=== PATIENT | male | born 1935 | race Caucasian/White ===

== ENCOUNTER 2016-10-13 11:12 | Emergency (ER) | payer MEDICARE, BC ==
[2016-10-13 11:33] VITALS: BP 144/84
--- NOTE | 2016-10-13 12:29 | EDM.PDOC ---
[id number] 4d FELL OUTSIDE RIBS ARE HURTING Time Seen by Provider: 10/13/16 12:28 Source of Information: Reports: Patient, Family History Limitations: Reports: No Limitations - History of Present Illness INITIAL COMMENTS - FREE TEXT/NARRATIVE: 80-year-old male fell backwards and struck the left flank hard on the edge of a lawnmower. He is not short of breath but has pleuritic pain and pain in the upper left abdomen and left flank. He is on Coumadin. Onset: Sudden Location: Reports: Chest, Abdomen left lower ribcage Pain Score (Numeric/FACES): 9 - Related Data Allergies Allergy/AdvReac Type Severity Reaction Status Date / Time Cephalosporins Allergy Hives Verified 10/13/16 11:34 Iodinated Contrast Media - Allergy Burning Verified 10/13/16 11:34 Oral and [Iodinated Contrast Media - IV Dye] iodine Allergy Burning Verified 10/13/16 11:34 niacin Allergy Cannot Verified 10/13/16 11:34 Remember oxycodone HCl Allergy Cannot Verified 10/13/16 11:34 [From OxyContin] Remember Sulfa (Sulfonamide Allergy Hives Verified 10/13/16 11:34 Antibiotics) vancomycin Allergy Hives Verified 10/13/16 11:34 levofloxacin AdvReac Intermediate Itching Verified 10/13/16 11:34 allobarbital AdvReac Diarrhea Verified 10/13/16 11:34 allopurinol AdvReac Diarrhea Verified 10/13/16 11:34 tetanus and diphtheria AdvReac Vomiting Verified 10/13/16 11:34 toxoids [Tetanus&Diphtheria Toxoid] Home Meds: Home Meds Allopurinol [Zyloprim] 200 mg PO DAILY 05/29/13 [History] Aspirin [Aspirin EC] 81 mg PO DAILY 05/29/13 [History] Carvedilol [Coreg] 12.5 mg PO BID 05/29/13 [History] Colchicine [Colcrys] 0.6 mg PO DAILY 05/29/13 [History] Insulin Aspart [Novolog Flexpen] 8 units SUBCUT TIDAC 05/29/13 [History] Isosorbide Mononitrate [Imdur] 90 mg PO DAILY 05/29/13 [History] Triamcinolone Acetonide [Kenalog 0.1% Crm] 1 applic TOP TID PRN 05/29/13 [ History] Nitroglycerin [Nitrostat] 0.4 mg PO ASDIRECTED 09/05/14 [History] Simvastatin 80 mg PO BEDTIME 09/05/14 [History] Warfarin Sodium 5 mg PO ASDIRECTED 09/05/14 [History] Ferrous Sulfate 325 mg PO BID 06/17/15 [History] Furosemide 80 mg PO BID #60 tablet 06/19/15 [Rx] Insulin Glarg,Human.Rec.Analog [Lantus Solostar] 12 unit SQ BEDTIME 09/15/15 [ History] Losartan [Cozaar] 25 mg PO DAILY 10/13/16 [History] Spironolactone [Aldactone] 25 mg PO DAILY 10/13/16 [History] Past Medical History HEENT History: Reports: Impaired Vision Cardiovascular History: Reports: Afib, Blood Clots/VTE/DVT, CAD, High Cholesterol, Hypertension, [place], PVD, SOB on Exertion, Stents Respiratory History: Reports: Sleep Apnea, Other (See Below) Other Respiratory History: uses cpap and oxygen at night Genitourinary History: Reports: Other (See Below) Other Genitourinary History: radiation to prostate Musculoskeletal History: Reports: Back Pain, Chronic, Fracture, Gout, Osteoarthritis Neurological History: Reports: CVA, Neuropathy, Peripheral Psychiatric History: Reports: Anxiety, Depression Endocrine/Metabolic History: Reports: Diabetes, Type II Oncologic (Cancer) History: Reports: Prostate - Infectious Disease History Infectious Disease History: Reports: Chicken Pox, Measles - Past Surgical History HEENT Surgical History: Reports: Oral Surgery Cardiovascular Surgical History: Reports: Coronary Artery Stent Respiratory Surgical History: Reports: None GI Surgical History: Reports: Appendectomy, Cholecystectomy, Colonoscopy, EGD, Hernia Repair/Other Neurological Surgical History: Reports: Lumbar Spine Musculoskeletal Surgical History: Reports: Hip Replacement, Shoulder Replacement Social & Family History - Tobacco Use Smoking Status *Q: Never Smoker Years of Tobacco use: 30 Used Tobacco, but Quit: Yes Month Tobacco Last Used: 11 Second Hand Smoke Exposure: No - Alcohol Use Days Per Week of Alcohol Use: 0 - Recreational Drug Use Recreational Drug Use: No ED ROS GENERAL - Review of Systems Review Of Systems: See Below Constitutional: Denies: Fever, Chills HEENT: Reports: No Symptoms Respiratory: Reports: Pleuritic Chest Pain Cardiovascular: Reports: Chest Pain GI/Abdominal: Reports: Abdominal Pain (Left upper abdomen) Skin: Denies: Bruising (no significant bruising) Neurological: Denies: Dizziness, Headache Psychiatric: Reports: No Symptoms ED EXAM, GENERAL - Physical Exam Exam: See Below Exam Limited By: No Limitations General Appearance: Alert, No Apparent Distress (No significant distress but uncomfortable with movement) Respiratory/Chest: No Respiratory Distress, Lungs Clear, Other (Very tender to palpation over the left lateral chest, no crepitus) Cardiovascular: Irregularly Irregular GI/Abdominal: Soft, Tender (Does react was some tenderness to palpation in the left upper quadrant) Extremities: Pedal Edema Neurological: Alert, Oriented Psychiatric: Normal Affect, Normal Mood Skin Exam: Other (Some bruising in the extremities, none over the traumatic area ) Course - Vital Signs Last Recorded V/S: Last Vital Signs Temp 96.9 F 10/13/16 11:32 Pulse 68 10/13/16 11:32 Resp 15 10/13/16 11:32 BP 144/84 H 10/13/16 11:32 Pulse Ox 93 L 10/13/16 11:32 - Orders/Labs/Meds Labs: Laboratory Tests 10/13/16 10/13/16 Range/Units 12:28 12:28 WBC 5.2 (4.5-11.0) K/uL RBC 5.02 (4.30-5.90) M/uL Hgb 15.0 (12.0-15.0) g/dL Hct 45.1 (40.0-54.0) % MCV 90 (80-98) fL MCH 30 (27-31) pg MCHC 33 (32-36) % Plt Count 162 (150-400) K/uL Neut % (Auto) 58 (36-66) % Lymph % (Auto) 26 (24-44) % [place] % (Auto) 13 H (2-6) % Eos % (Auto) 3 (2-4) % Baso % (Auto) 0 (0-1) % Sodium 139 L (140-148) mmol/L Potassium 3.9 (3.6-5.2) mmol/L Chloride 106 (100-108) mmol/L Carbon Dioxide 26 (21-32) mmol/L Anion Gap 10.9 (5.0-14.0) mmol/L BUN 23 H (7-18) mg/dL Creatinine 1.2 (0.8-1.3) mg/dL Est Cr Clr Drug Dosing 55.49 mL/min Estimated GFR (MDRD) 58 L (>60) Glucose 142 H (74-106) mg/dL Calcium 8.7 (8.5-10.1) mg/dL - Re-Assessments/Exams Free Text/Narrative Re-Assessment/Exam: 10/13/16 13:34 CBC and BMP were obtained, findings were stable and a CT of the chest and abdomen showed no acute findings. Patient was reassured that he sustained a contusion to the chest wall but otherwise has no significant injury. He should increase activity as tolerated. Departure - Departure Time of Disposition: 13:53 Disposition: Home, Self-Care 01 Condition: good Clinical Impression: Contusion of left chest wall Qualifiers: Encounter type: initial encounter Qualified Code(s): S20.212A - Contusion of left front wall of thorax, initial encounter - Discharge Information Instructions: Chest Contusion, [id number] Referrals: Cesario Ricks MD [Primary Care Provider] - Forms: ED Department Discharge Care Plan Goals: Continue regular medications. Ice to sore areas may help. Increase activity as tolerated, and return anytime if worsening or concerns.
--- NOTE | 2016-10-13 13:33 | CT ---
Chest, abdomen, pelvis CT. History: Fall. Left-sided trauma. Technique: Unenhanced axial images were obtained from the lung apices extending to the chest, abdome n, and pelvis. Coronal images were reconstructed. Total DLP: 1091. Comparison: Chest CT from June 2015. Findings: Chest: There is no pneumothorax. There is chronic increased interstitial markings in the lung bases. The findings likely reflect fibrosis. There is a stable nodular density anteriorly in the right altagracia g base. There are no pleural effusions. The mediastinal structures are stable. The ribs are intact. Abdomen pelvis: The gallbladder is surgically absent. The liver, pancreas, spleen are unremarkable. The kidneys demonstrate no hydronephrosis. There is no free fluid. There is no large or small bowel distention. The skeletal structures are intact. Impression: 1. Chronic bibasilar fibrosis. 2. There are no posttraumatic findings of the chest, abdomen, or pelvis.
== END 2016-10-13 13:53 | disposition home or self-care (01) ==
LOC: JP.ED 11:12
DX: S20.212A Contusion of left front wall of thorax, initial encounter (principal); I25.10 Atherosclerotic heart disease of native coronary artery without angina pectoris; I10 Essential (primary) hypertension; F41.9 Anxiety disorder, unspecified; F32.9 Major depressive disorder, single episode, unspecified; E11.42 Type 2 diabetes mellitus with diabetic polyneuropathy; E78.00 Pure hypercholesterolemia, unspecified; I25.2 Old myocardial infarction; Z79.82 Long term (current) use of aspirin; Z79.899 Other long term (current) drug therapy; Z79.4 Long term (current) use of insulin; Z90.49 Acquired absence of other specified parts of digestive tract; Z98.890 Other specified postprocedural states; Z88.1 Allergy status to other antibiotic agents; Z88.2 Allergy status to sulfonamides; Z88.5 Allergy status to narcotic agent; Z88.8 Allergy status to other drugs, medicaments and biological substances
CPT/HCPCS: 36415; 71250; 71250-26; 74176; 74176-26; 80048; 85025; 99284; 99284-25

== ENCOUNTER 2017-03-02 07:23 | Day surgery (SDC) | payer MEDICARE, BC ==
[~2017-03-02 07:23] MED LIST: Sodium Chloride 0.9% 10 ML Syringe FLUSH PRN
[2017-03-02 09:58] VITALS: BP 142/106
--- NOTE | 2017-03-02 10:20 | OR ---
DATE OF PROCEDURE: 03/02/2017 POSTOPERATIVE CARE: Postoperative care will be provided mainly at the [address] [place] [address] [facility] in conjunction with [facility]. PREOPERATIVE DIAGNOSIS: Cataract, left eye. PREOPERATIVE DIAGNOSIS: Cataract, left eye. PROCEDURE: Cataract extraction, phacoemulsification with intraocular lens placement, left eye. ANESTHESIA: Topical and intracameral. ESTIMATED BLOOD LOSS: Minimal. COMPLICATIONS: None. PATHOLOGY SPECIMENS: None. SURGICAL FINDINGS: None. INDICATION FOR PROCEDURE: The patient is an 81-year-old male with history of a visually significant cataract in the left eye, which interfered with activities of daily living. This consisted of a nuclear sclerosis cataract. Following careful discussion of the risks, benefits and alternatives to cataract extraction with intraocular lens placement including blindness and , the patient elected to proceed, and informed, written consent was obtained prior to the procedure. DESCRIPTION OF THE PROCEDURE: The patient was previously identified, and a jovon placed above the left eye. All sources, including the patient, indicated that the left eye was the correct eye. The patient was subsequently taken to the operating room where standard monitors were applied. The patient was then prepped and draped in the usual sterile fashion for ophthalmic surgery. Attention was first directed at the 12 o'clock position where a paracentesis port was fashioned. Shugar solution followed by Viscoat was instilled into the eye. Attention was then directed to the 8:30 position where a triplanar incision was made in a near-clear manner using a keratome. A continuous capsulorrhexis was then made using a combination of the cystotome and Utrata forceps. Hydrodissection was achieved using a balanced salt solution, and the lens rotated nicely. Phacoemulsification was then done using a modified [id number] technique without complication. Phaco time was 7.76 CDE. The remaining cortex was removed using the irrigation/aspiration handpiece. Provisc was then instilled into the eye. A Technis lens, model [id number], at 21.0 diopters was then placed in the capsular bag using an Hutchison injector. The remaining viscoelastic was removed using the irrigation/aspiration forceps. All wounds were then checked and found to be watertight. The lid speculum and drapes were removed. Maxitrol ointment was placed in the patient's left eye, and the eye was shielded. The patient tolerated the procedure well. The patient was instructed to follow up tomorrow. All needle and sponge counts were correct at the end of the procedure. Staci Wong MD /[id number]
== END 2017-03-02 10:14 | disposition home or self-care (01) ==
LOC: JP.SDS 07:23
PROVIDERS: ATTEND Ophthalmology
DX: H26.9 Unspecified cataract (principal); E11.22 Type 2 diabetes mellitus with diabetic chronic kidney disease; I12.9 Hypertensive chronic kidney disease with stage 1 through stage 4 chronic kidney disease, or unspecified chronic kidney disease; N18.9 Chronic kidney disease, unspecified; I25.10 Atherosclerotic heart disease of native coronary artery without angina pectoris; G47.33 Obstructive sleep apnea (adult) (pediatric); E78.00 Pure hypercholesterolemia, unspecified; E66.9 Obesity, unspecified; F41.9 Anxiety disorder, unspecified; F32.9 Major depressive disorder, single episode, unspecified; Z88.1 Allergy status to other antibiotic agents; Z88.2 Allergy status to sulfonamides; Z88.8 Allergy status to other drugs, medicaments and biological substances; Z91.041 Radiographic dye allergy status; Z87.891 Personal history of nicotine dependence; Z95.5 Presence of coronary angioplasty implant and graft; Z68.30 Body mass index [BMI] 30.0-30.9, adult; Z90.49 Acquired absence of other specified parts of digestive tract
CPT/HCPCS: 66984; C1780; J7050

== ENCOUNTER 2017-04-06 06:11 | Day surgery (SDC) | payer MEDICARE, BC ==
[2017-04-06] MEDS ORDERED: Sodium Chloride 0.9% 10 ML Syringe FLUSH PRN (07:00)
[2017-04-06 08:18] VITALS: BP 144/85
--- NOTE | 2017-04-06 12:50 | OR ---
DATE OF PROCEDURE: 04/06/2017 POSTOPERATIVE CARE: Postoperative care will be provided mainly at the [address] [place] [address] [facility] in conjunction with [facility]. PREOPERATIVE DIAGNOSIS: Cataract, right eye. PREOPERATIVE DIAGNOSIS: Cataract, right eye. PROCEDURE: Cataract extraction, phacoemulsification with intraocular lens placement, right eye. ANESTHESIA: Topical and intracameral. ESTIMATED BLOOD LOSS: Minimal. COMPLICATIONS: None. PATHOLOGY SPECIMENS: None. SURGICAL FINDINGS: None. INDICATION FOR PROCEDURE: The patient is an 81-year-old male with history of a visually significant cataract in the right eye, which interfered with activities of daily living. This consisted of a nuclear sclerosis cataract. Following careful discussion of the risks, benefits and alternatives to cataract extraction with intraocular lens placement including blindness and , the patient elected to proceed, and informed, written consent was obtained prior to the procedure. DESCRIPTION OF THE PROCEDURE: The patient was previously identified, and a jovon placed above the right eye. All sources, including the patient, indicated that the right eye was the correct eye. The patient was subsequently taken to the operating room where standard monitors were applied. The patient was then prepped and draped in the usual sterile fashion for ophthalmic surgery. Attention was first directed at the 12 o'clock position where a paracentesis port was fashioned. Shugar solution followed by Viscoat was instilled into the eye. Attention was then directed to the 8:30 position where a triplanar incision was made in a near-clear manner using a keratome. A continuous capsulorrhexis was then made using a combination of the cystotome and Utrata forceps. Hydrodissection was achieved using a balanced salt solution, and the lens rotated nicely. Phacoemulsification was then done using a modified [id number] technique without complication. Phaco time was 11.29 CDE. The remaining cortex was removed using the irrigation/aspiration handpiece. Provisc was then instilled into the eye. A Technis lens, model [id number], at 21.0 diopters was then placed in the capsular bag using an Leona injector. The remaining viscoelastic was removed using the irrigation/aspiration forceps. All wounds were then checked and found to be watertight. The lid speculum and drapes were removed. Maxitrol ointment was placed in the patient's right eye, and the eye was shielded. The patient tolerated the procedure well. The patient was instructed to follow up tomorrow. All needle and sponge counts were correct at the end of the procedure. Staci Wong MD /[id number]
== END 2017-04-06 08:35 | disposition home or self-care (01) ==
LOC: JP.SDS 06:11
PROVIDERS: ATTEND Ophthalmology
DX: H26.9 Unspecified cataract (principal); G47.33 Obstructive sleep apnea (adult) (pediatric); Z99.89 Dependence on other enabling machines and devices; E11.22 Type 2 diabetes mellitus with diabetic chronic kidney disease; N18.9 Chronic kidney disease, unspecified; Z88.1 Allergy status to other antibiotic agents; Z88.2 Allergy status to sulfonamides; Z88.5 Allergy status to narcotic agent; Z88.7 Allergy status to serum and vaccine; Z88.8 Allergy status to other drugs, medicaments and biological substances; Z91.041 Radiographic dye allergy status
CPT/HCPCS: 66984; J7050; C1780

== ENCOUNTER 2017-05-31 14:13 | Emergency (ER) | payer MEDICARE, BC ==
[2017-05-31 14:47] VITALS: BP 105/73
--- NOTE | 2017-05-31 15:14 | EDM.PDOC ---
ED HPI GENERAL MEDICAL PROBLEM - General Chief Complaint: Upper Extremity Injury/Pain Stated Complaint: FALL, RIGHT SHOULDER, ARM, HAND PAIN Time Seen by Provider: 05/31/17 15:07 Source of Information: Reports: Patient, RN Notes Reviewed History Limitations: Reports: No Limitations - History of Present Illness INITIAL COMMENTS - FREE TEXT/NARRATIVE: 81-year-old gentleman presents to the emergency department today complaint of right arm pain, he states he fell in his house a couple of days ago landed predominantly on his shoulder and wrist area he is experiencing significant pain difficult for him to move his wrist he has developed a lot of swelling over the wrist and fingers as well he is on Coumadin for atrial fibrillation Right Arm Pain Score (Numeric/FACES): 10 - Related Data Allergies Allergy/AdvReac Type Severity Reaction Status Date / Time Cephalosporins Allergy Hives Verified 05/31/17 14:47 Iodinated Contrast- Oral and Allergy Burning Verified 05/31/17 14:47 IV Dye [Iodinated Contrast Media - IV Dye] iodine Allergy Burning Verified 05/31/17 14:47 niacin Allergy Cannot Verified 05/31/17 14:47 Remember oxycodone HCl Allergy Cannot Verified 05/31/17 14:47 [From OxyContin] Remember Sulfa (Sulfonamide Allergy Hives Verified 05/31/17 14:47 Antibiotics) vancomycin Allergy Hives Verified 05/31/17 14:47 levofloxacin AdvReac Intermediate Itching Verified 05/31/17 14:47 allobarbital AdvReac Diarrhea Verified 05/31/17 14:47 allopurinol AdvReac Diarrhea Verified 05/31/17 14:47 tetanus and diphtheria AdvReac Vomiting Verified 05/31/17 14:47 toxoids [Tetanus&Diphtheria Toxoid] Home Meds: Home Meds Allopurinol [Zyloprim] 200 mg PO DAILY 05/29/13 [History] Aspirin [Aspirin EC] 81 mg PO DAILY 05/29/13 [History] Carvedilol [Coreg] 12.5 mg PO BID 05/29/13 [History] Colchicine [Colcrys] 0.6 mg PO DAILY 05/29/13 [History] Isosorbide Mononitrate [Imdur] 90 mg PO DAILY 05/29/13 [History] Nitroglycerin [Nitrostat] 0.4 mg PO ASDIRECTED 09/05/14 [History] Simvastatin 80 mg PO BEDTIME 09/05/14 [History] Ammonium Lactate [Lac-Hydrin 12% Crm] 12 percent TOP BID 02/28/17 [History] Furosemide 80 mg PO DAILY 02/28/17 [History] Losartan [Cozaar] 25 mg PO DAILY 04/05/17 [History] Triamcinolone Acetonide [Triamcinolone Acetonide 0.1% Crm] 15 gm TOP TID PRN [History] Warfarin [Coumadin] 5 mg PO DAILY 04/05/17 [History] Insulin Glargine,Hum.Rec.Anlog [Basaglar Kwikpen U-100] 14 unit SQ BEDTIME 05/31 [History] Past Medical History HEENT History: Reports: Cataract, Impaired Vision Cardiovascular History: Reports: Afib, Blood Clots/VTE/DVT, CAD, High Cholesterol, Hypertension, [place], PVD, SOB on Exertion, Stents Respiratory History: Reports: Sleep Apnea, Other (See Below) Other Respiratory History: uses cpap and oxygen at night Other Genitourinary History: radiation to prostate Musculoskeletal History: Reports: Back Pain, Chronic, Fracture, Gout, Osteoarthritis Neurological History: Reports: CVA, Neuropathy, Peripheral Psychiatric History: Reports: Anxiety, Depression Endocrine/Metabolic History: Reports: Diabetes, Type II, Obesity/BMI 30+ Hematologic History: Reports: Blood Transfusion(s) Oncologic (Cancer) History: Reports: Prostate Dermatologic History: Reports: Other (See Below) Other Dermatologic History: rash - Infectious Disease History Infectious Disease History: Reports: C-Difficile, Measles, Mumps - Past Surgical History HEENT Surgical History: Reports: Cataract Surgery Cardiovascular Surgical History: Reports: Coronary Artery Stent Respiratory Surgical History: Reports: None Male Surgical History: Reports: Prostate Biopsy Endocrine Surgical History: Reports: None Neurological Surgical History: Reports: Lumbar Spine Musculoskeletal Surgical History: Reports: Hip Replacement, Shoulder Replacement Oncologic Surgical History: Reports: None Social & Family History - Tobacco Use Smoking Status *Q: Former Smoker Years of Tobacco use: 10 Packs/Tins Daily: 2 Used Tobacco, but Quit: Yes Month Tobacco Last Used: 1973 Second Hand Smoke Exposure: No - Caffeine Use Caffeine Use: Reports: None - Alcohol Use Days Per Week of Alcohol Use: 0 - Recreational Drug Use Recreational Drug Use: No Review of Systems - Review of Systems Review Of Systems: See Below Respiratory: Reports: No Symptoms Cardiovascular: Reports: No Symptoms GI/Abdominal: Reports: No Symptoms Musculoskeletal: Reports: Shoulder Pain, Arm Pain, Joint Pain (Wrist pain) ED EXAM, GENERAL - Physical Exam Exam: See Below Free Text/Narrative:: Examination of the upper extremity I do appreciate some edema and ecchymosis predominantly in the distal aspect of the right upper extremity limited range of motion of all digits secondary pain and edema minimal range of motion of the wrist and pain with shoulder rotation. Shoulder is tender to palpation the elbow is tender to palpation and the wrist is tender to palpation Exam Limited By: No Limitations General Appearance: Alert, WD/WN, No Apparent Distress Head: Atraumatic, Normocephalic Neck: Normal Inspection, Supple, Non-Tender, Full Range of Motion Respiratory/Chest: No Respiratory Distress, Lungs Clear, Normal Breath Sounds, No Accessory Muscle Use Cardiovascular: Normal Peripheral Pulses, Irregularly Irregular Peripheral Pulses: 2+: Radial (R) Course - Vital Signs Last Recorded V/S: Last Vital Signs Temp 96.3 F 05/31/17 14:32 Pulse 76 05/31/17 14:32 Resp 18 05/31/17 14:32 BP 105/73 05/31/17 14:32 Pulse Ox 97 05/31/17 14:32 - Orders/Labs/Meds Orders: Active Orders 24 hr Category Date Time Status Elbow Min 3V Rt [CR] Stat Exams 05/31/17 15:11 Taken Shoulder Comp Rt [CR] Stat Exams 05/31/17 15:11 Taken Wrist Comp Min 3V Rt [CR] Stat Exams 05/31/17 15:11 Taken Labs: Laboratory Tests 05/31/17 05/31/17 05/31/17 Range/Units 15:12 15:12 15:12 WBC 6.7 (4.5-11.0) K/uL RBC 5.32 (4.30-5.90) M/uL Hgb 15.1 H (12.0-15.0) g/dL Hct 46.2 (40.0-54.0) % MCV 87 (80-98) fL MCH 28 (27-31) pg MCHC 33 (32-36) % Plt Count 180 (150-400) K/uL Neut % (Auto) 69 H (36-66) % Lymph % (Auto) 18 L (24-44) % [place] % (Auto) 12 H (2-6) % Eos % (Auto) 1 L (2-4) % Baso % (Auto) 0 (0-1) % PT 30.4 H (9.5-12.0) sec INR 2.72 H (0.80-1.20) Sodium 141 (140-148) mmol/L Potassium 3.6 (3.6-5.2) mmol/L Chloride 103 (100-108) mmol/L Carbon Dioxide 28 (21-32) mmol/L Anion Gap 10.4 (5.0-14.0) mmol/L BUN 26 H (7-18) mg/dL Creatinine 1.5 H (0.8-1.3) mg/dL Est Cr Clr Drug Dosing 43.65 mL/min Estimated GFR (MDRD) 45 L (>60) Glucose 139 H (74-106) mg/dL Calcium 9.0 (8.5-10.1) mg/dL Meds: Medications Discontinued Medications Generic Name Dose Route Start Last Admin Trade Name Mehreen PRN Reason Stop Dose Admin Ondansetron HCl 4 mg 05/31/17 16:39 05/31/17 17:00 Zofran Odt PO 05/31/17 16:40 4 mg ONETIME ONE Administration Tramadol HCl 50 mg 05/31/17 16:39 05/31/17 17:01 Ultram PO 05/31/17 16:40 50 mg ONETIME ONE Administration Departure - Departure Time of Disposition: 17:17 Disposition: Home, Self-Care 01 Condition: Good Clinical Impression: Contusion, shoulder /upper arm - Discharge Information Referrals: Cesario Ricks MD [Primary Care Provider] - Forms: ED Department Discharge Additional Instructions: Use ibuprofen for baseline pain control use Ultram as needed for breakthrough pain, Please followup with your primary care provider in 7-10 days if not better, please call return to the emergency department with worsening of symptoms. - My Orders Last 24 Hours: My Active Orders 05/31/17 15:11 Elbow Min 3V Rt [CR] Stat Shoulder Comp Rt [CR] Stat Wrist Comp Min 3V Rt [CR] Stat - Assessment/Plan Last 24 Hours: My Active Orders 05/31/17 15:11 Elbow Min 3V Rt [CR] Stat Shoulder Comp Rt [CR] Stat Wrist Comp Min 3V Rt [CR] Stat Plan: Assessment Acuity = acute Site and laterality = contusion right shoulder wrist and elbow Etiology = secondary to fall Manifestations = none Location of injury = Home Lab values = no fracture is observed and x-rays Plan He had some improvement with Ultram provided, prescription written for Ultram 50 mg 1 tablet by mouth 3 times a day when necessary him follow-up with his primary care 5-7 days if no improvement This note was dictated using Whi voice recognition software please call with any questions on syntax or rachel.
[2017-05-31] MEDS ORDERED: traMADol 50 MG Tab PO ONE (16:39)
[2017-05-31] MEDS ORDERED: Ondansetron 4 MG Tab.DIS PO ONE (16:39)
== END 2017-05-31 17:45 | disposition home or self-care (01) ==
LOC: JP.ED 14:13
DX: S40.011A Contusion of right shoulder, initial encounter (principal); S60.211A Contusion of right wrist, initial encounter; S50.01XA Contusion of right elbow, initial encounter; E11.40 Type 2 diabetes mellitus with diabetic neuropathy, unspecified; I10 Essential (primary) hypertension; E78.00 Pure hypercholesterolemia, unspecified; I48.91 Unspecified atrial fibrillation; Z79.82 Long term (current) use of aspirin; Z79.4 Long term (current) use of insulin; Z88.1 Allergy status to other antibiotic agents; Z88.2 Allergy status to sulfonamides; Z88.8 Allergy status to other drugs, medicaments and biological substances; Z88.7 Allergy status to serum and vaccine; Z87.891 Personal history of nicotine dependence; W19.XXXA Unspecified fall, initial encounter; Y92.009 Unspecified place in unspecified non-institutional (private) residence as the place of occurrence of the external cause
CPT/HCPCS: 36415; 73030; 73080; 73110; 80048; 85025; 85610; 99284; A9270

== ENCOUNTER 2017-12-20 09:10 | Emergency (ER) | payer MEDICARE, BC ==
[2017-12-20] MEDS ORDERED: Cyclobenzaprine 10 MG Tab PO ONE (09:41)
[2017-12-20] MEDS ORDERED: fentaNYL 100 MCG/2 ML SDV IVPUSH ONE (09:41)
[2017-12-20 10:20] VITALS: BP 188/109
--- NOTE | 2017-12-20 10:26 | EDM.PDOC ---
ED HPI GENERAL MEDICAL PROBLEM - General Chief Complaint: Back Pain or Injury Stated Complaint: MEDICAL VIA AMBULANCE Time Seen by Provider: 12/20/17 09:35 Source of Information: Reports: Patient, Family, Old Records, RN Notes Reviewed History Limitations: Reports: No Limitations - History of Present Illness INITIAL COMMENTS - FREE TEXT/NARRATIVE: 82-year-old gentleman presents to the emergency department today via EMS services for low back pain, he denies any trauma recently underwent surgery about 20 days ago for removal of the subcutaneous cyst, he states he has been doing well however the last couple days she's had increased in low back pain, no loss of bowel or bladder no fevers recently restarted on Coumadin which was held for her surgery - Related Data Allergies Allergy/AdvReac Type Severity Reaction Status Date / Time Cephalosporins Allergy Hives Verified 12/20/17 09:22 Iodinated Contrast- Oral and Allergy Burning Verified 12/20/17 09:22 IV Dye [Iodinated Contrast Media - IV Dye] iodine Allergy Burning Verified 12/20/17 09:22 niacin Allergy Cannot Verified 12/20/17 09:22 Remember oxycodone HCl Allergy Cannot Verified 12/20/17 09:22 [From OxyContin] Remember Sulfa (Sulfonamide Allergy Hives Verified 12/20/17 09:22 Antibiotics) vancomycin Allergy Hives Verified 12/20/17 09:22 levofloxacin AdvReac Intermediate Itching Verified 12/20/17 09:22 allobarbital AdvReac Diarrhea Verified 12/20/17 09:22 allopurinol AdvReac Diarrhea Verified 12/20/17 09:22 tetanus and diphtheria AdvReac Vomiting Verified 11/29/17 09:05 toxoids [Tetanus&Diphtheria Toxoid] Home Meds: Home Meds Aspirin [Aspirin EC] 81 mg PO DAILY 05/29/13 [History] Carvedilol [Coreg] 12.5 mg PO BID 05/29/13 [History] Colchicine [Colcrys] 0.6 mg PO DAILY 05/29/13 [History] Nitroglycerin [Nitrostat] 0.4 mg PO ASDIRECTED 09/05/14 [History] Simvastatin 80 mg PO BEDTIME 09/05/14 [History] Furosemide 80 mg PO DAILY 02/28/17 [History] Triamcinolone Acetonide [Triamcinolone Acetonide 0.1% Crm] 15 gm TOP TID PRN [History] Insulin Glargine,Hum.Rec.Anlog [Basaglar Kwikpen U-100] 14 unit SQ BEDTIME 05/31 [History] Ketorolac [Toradol] 10 mg PO Q6H PRN #20 tab 12/20/17 [Rx] Past Medical History HEENT History: Reports: Cataract, Impaired Vision Cardiovascular History: Reports: Afib, Blood Clots/VTE/DVT, CAD, High Cholesterol, Hypertension, [place], PVD, SOB on Exertion, Stents Respiratory History: Reports: Sleep Apnea, Other (See Below) Other Respiratory History: uses cpap and oxygen at night Gastrointestinal History: Reports: Cholelithiasis, GI Bleed Genitourinary History: Reports: BPH Other Genitourinary History: radiation to prostate Musculoskeletal History: Reports: Back Pain, Chronic, Fracture, Gout, Osteoarthritis Neurological History: Reports: CVA, Neuropathy, Peripheral Psychiatric History: Reports: Anxiety, Depression Endocrine/Metabolic History: Reports: Diabetes, Type II, Obesity/BMI 30+ Hematologic History: Reports: Anemia, Blood Transfusion(s) Oncologic (Cancer) History: Reports: Prostate Dermatologic History: Reports: Other (See Below) Other Dermatologic History: rash - Infectious Disease History Infectious Disease History: Reports: Chicken Pox, Measles, Mumps - Past Surgical History HEENT Surgical History: Reports: Cataract Surgery Cardiovascular Surgical History: Reports: Coronary Artery Stent Respiratory Surgical History: Reports: None GI Surgical History: Reports: Appendectomy, Cholecystectomy, Colonoscopy, EGD, Hernia, Inguinal Male Surgical History: Reports: Prostate Biopsy Endocrine Surgical History: Reports: None Neurological Surgical History: Reports: Lumbar Spine Musculoskeletal Surgical History: Reports: Carpal Tunnel, Hip Replacement, Shoulder Replacement Oncologic Surgical History: Reports: None Social & Family History - Tobacco Use Smoking Status *Q: Former Smoker Years of Tobacco use: 22 Packs/Tins Daily: 1 Used Tobacco, but Quit: Yes Month/Year Tobacco Last Used: Second Hand Smoke Exposure: Yes - Caffeine Use Caffeine Use: Reports: None - Recreational Drug Use Recreational Drug Use: No ED ROS GENERAL - Review of Systems Review Of Systems: See Below Constitutional: Denies: Fever, Chills HEENT: Reports: No Symptoms Respiratory: Reports: No Symptoms Cardiovascular: Reports: No Symptoms GI/Abdominal: Reports: No Symptoms : Reports: No Symptoms Musculoskeletal: Reports: Back Pain, Joint Pain (Left hip) Skin: Reports: Bruising Neurological: Reports: No Symptoms ED EXAM,LOWER BACK PAIN/INJURY - Physical Exam Exam: See Below Text/Narrative:: Examination of the back limited range of motion secondary to pain however there is no tenderness to palpation along the spine he is tender to palpation in the left buttocks area, surgical wound in this area clean dry and intact small amount of induration is noted around the surgical site. He is tender to palpation around the left hip pelvic area and there is a large amount of bruising which is noted over the left thigh Exam Limited By: No Limitations General Appearance: Alert, Moderate Distress Respiratory/Chest: No Respiratory Distress, Lungs Clear, Normal Breath Sounds, No Accessory Muscle Use, Chest Non-Tender Cardiovascular: Regular Rate, Rhythm, No Murmur GI/Abdominal: Normal Bowel Sounds, Soft, Non-Tender Course - Vital Signs Last Recorded V/S: Last Vital Signs Temp 95.5 F 12/20/17 10:20 Pulse 92 12/20/17 10:20 Resp 14 12/20/17 10:20 BP 188/109 H 12/20/17 10:20 Pulse Ox 98 12/20/17 10:20 - Orders/Labs/Meds Labs: Laboratory Tests 12/20/17 12/20/17 12/20/17 Range/Units 10:30 10:30 10:30 WBC 3.9 L (4.5-11.0) K/uL RBC 4.99 (4.30-5.90) M/uL Hgb 14.1 (12.0-15.0) g/dL Hct 43.5 (40.0-54.0) % MCV 87 (80-98) fL MCH 28 (27-31) pg MCHC 32 (32-36) % Plt Count 176 (150-400) K/uL Neut % (Auto) 57 (36-66) % Lymph % (Auto) 28 (24-44) % [place] % (Auto) 11 H (2-6) % Eos % (Auto) 4 (2-4) % Baso % (Auto) 0 (0-1) % PT 12.1 H (9.5-12.0) sec INR 1.11 D (0.80-1.20) Sodium 142 (140-148) mmol/L Potassium 4.0 (3.6-5.2) mmol/L Chloride 105 (100-108) mmol/L Carbon Dioxide 29 (21-32) mmol/L Anion Gap 8.5 (5.0-14.0) mmol/L BUN 26 H (7-18) mg/dL Creatinine 1.3 (0.8-1.3) mg/dL Est Cr Clr Drug Dosing 49.51 mL/min Estimated GFR (MDRD) 53 L (>60) Glucose 114 H (74-106) mg/dL Calcium 8.9 (8.5-10.1) mg/dL Meds: Medications Discontinued Medications Generic Name Dose Route Start Last Admin Trade Name Freq PRN Reason Stop Dose Admin Cyclobenzaprine HCl 10 mg 12/20/17 09:41 12/20/17 09:50 Flexeril PO 12/20/17 09:42 10 mg ONETIME ONE Administration Fentanyl 50 mcg 12/20/17 09:41 12/20/17 09:50 Sublimaze IVPUSH 12/20/17 09:42 50 mcg ONETIME ONE Administration Departure - Departure Time of Disposition: 11:25 Disposition: Home, Self-Care 01 Condition: Fair Clinical Impression: Left hip pain - Discharge Information Prescriptions: Ketorolac [Toradol] 10 mg PO Q6H PRN #20 tab PRN Reason: Pain Referrals: Cesario Ricks MD [Primary Care Provider] - Forms: ED Department Discharge Additional Instructions: Use Toradol as needed for pain control, Please followup with your primary care provider in 3-5 days if not better, please call return to the emergency department with worsening of symptoms. - Assessment/Plan Plan: Assessment Acuity = acute Site and laterality = left hip pain Etiology = unclear etiology Manifestations = none Location of injury = Home Lab values = CBC, BMP unremarkable INR subtherapeutic at 1.11, x-rays of pelvis and hip show no acute process Plan He had good relief combination fentanyl and Flexeril, he does have a significant allergy to narcotics with mainly intolerance, prescription written for ketorolac 10 mg by mouth every 6 hours when necessary total #20 tablets from follow-up with primary care in 3-5 days for reevaluation This note was dictated using [employer] voice recognition software please call with any questions on syntax or grammar.
--- NOTE | 2017-12-20 11:10 | CR ---
Pelvis left hip There is left hip prosthesis. The components are well aligned and seated. There is advanced osteoarth ritis of the right hip. There are no acute post traumatic findings. Vascular calcifications are demon strated. Impression: 1. Left hip arthroplasty without evidence for complication. 2. Advanced osteoarthritis right hip.
== END 2017-12-20 11:57 | disposition home or self-care (01) ==
LOC: JP.ED 09:10
DX: S70.12XA Contusion of left thigh, initial encounter (principal); M25.552 Pain in left hip; Z87.891 Personal history of nicotine dependence; Z79.82 Long term (current) use of aspirin; Z88.1 Allergy status to other antibiotic agents; Z88.7 Allergy status to serum and vaccine; Z79.4 Long term (current) use of insulin; Z79.899 Other long term (current) drug therapy; I10 Essential (primary) hypertension; E11.9 Type 2 diabetes mellitus without complications; E66.9 Obesity, unspecified; Z88.2 Allergy status to sulfonamides; Z91.041 Radiographic dye allergy status; X58.XXXA Exposure to other specified factors, initial encounter
CPT/HCPCS: 36415; 73502; 80048; 85025; 85610; 96374; 99284; A9270; J3010

== ENCOUNTER 2018-08-28 20:09 | Emergency (ER) | payer MEDICARE, BC ==
[2018-08-28 21:07] VITALS: BP 135/78
--- NOTE | 2018-08-28 21:22 | EDM.PDOC ---
ED HPI GENERAL MEDICAL PROBLEM - General Chief Complaint: Upper Extremity Injury/Pain Stated Complaint: LEFT SHOULDER PAIN Time Seen by Provider: 08/28/18 21:17 Source of Information: Reports: Patient, RN Notes Reviewed History Limitations: Reports: No Limitations - History of Present Illness INITIAL COMMENTS - FREE TEXT/NARRATIVE: 82-year-old gentleman presents to the emergency department today following a twisting injury at home, he complains of left shoulder pain he injured his shoulder while trying to open a door his arm was fully supinated he was pulling on the door felt a pop now he has difficulty raising his arm at all rates pain 10 out of 10 - Related Data Allergies Allergy/AdvReac Type Severity Reaction Status Date / Time Cephalosporins Allergy Hives Verified 08/28/18 21:05 Iodinated Contrast- Oral and Allergy Burning Verified 08/28/18 21:05 IV Dye [Iodinated Contrast Media - IV Dye] iodine Allergy Burning Verified 08/28/18 21:05 niacin Allergy Cannot Verified 08/28/18 21:05 Remember oxycodone HCl Allergy Cannot Verified 08/28/18 21:05 [From OxyContin] Remember Sulfa (Sulfonamide Allergy Hives Verified 08/28/18 21:05 Antibiotics) vancomycin Allergy Hives Verified 08/28/18 21:05 levofloxacin AdvReac Intermediate Itching Verified 08/28/18 21:05 allobarbital AdvReac Diarrhea Verified 08/28/18 21:05 allopurinol AdvReac Diarrhea Verified 08/28/18 21:05 tetanus and diphtheria AdvReac Vomiting Verified 08/28/18 21:05 toxoids [Tetanus&Diphtheria Toxoid] Home Meds: Home Meds Aspirin [Aspirin EC] 81 mg PO DAILY 05/29/13 [History] Carvedilol [Coreg] 12.5 mg PO BID 05/29/13 [History] Colchicine [Colcrys] 0.6 mg PO DAILY 05/29/13 [History] Nitroglycerin [Nitrostat] 0.4 mg PO ASDIRECTED 09/05/14 [History] Simvastatin 80 mg PO BEDTIME 09/05/14 [History] Furosemide 40 mg PO Q48H 02/28/17 [History] Triamcinolone Acetonide [Triamcinolone Acetonide 0.1% Crm] 15 gm TOP TID PRN [History] Insulin Glargine,Hum.Rec.Anlog [Geraldoaglrenan Esparzapen U-100] 14 unit SQ BEDTIME 05/31 [History] Ketorolac [Toradol] 10 mg PO Q6H PRN #20 tab 12/20/17 [Rx] Warfarin Dosing [Coumadin Ask] 2.5 - 5 mg PO ONETIME 08/28/18 [History] Past Medical History HEENT History: Reports: Cataract, Impaired Vision Cardiovascular History: Reports: Afib, Blood Clots/VTE/DVT, CAD, High Cholesterol, Hypertension, [place], PVD, SOB on Exertion, Stents Respiratory History: Reports: Sleep Apnea, Other (See Below) Other Respiratory History: uses cpap and oxygen at night Gastrointestinal History: Reports: Cholelithiasis, GI Bleed Genitourinary History: Reports: BPH, Prostate Disorder Other Genitourinary History: radiation to prostate Musculoskeletal History: Reports: Back Pain, Chronic, Fracture, Gout, Osteoarthritis Neurological History: Reports: CVA, Neuropathy, Peripheral Psychiatric History: Reports: Anxiety, Depression Endocrine/Metabolic History: Reports: Diabetes, Type II, Obesity/BMI 30+ Hematologic History: Reports: Anemia, Blood Transfusion(s) Oncologic (Cancer) History: Reports: Prostate Dermatologic History: Reports: Other (See Below) Other Dermatologic History: rash - Infectious Disease History Infectious Disease History: Reports: Chicken Pox, Measles, Mumps - Past Surgical History HEENT Surgical History: Reports: Cataract Surgery Cardiovascular Surgical History: Reports: Coronary Artery Stent Respiratory Surgical History: Reports: None GI Surgical History: Reports: Appendectomy, Cholecystectomy, Colonoscopy, EGD, Hernia, Inguinal Male Surgical History: Reports: Prostate Biopsy Endocrine Surgical History: Reports: None Neurological Surgical History: Reports: Lumbar Spine Musculoskeletal Surgical History: Reports: Carpal Tunnel, Hip Replacement, Shoulder Replacement Oncologic Surgical History: Reports: None Social & Family History - Tobacco Use Smoking Status *Q: Never Smoker - Caffeine Use Caffeine Use: Reports: Coffee Caffeine Use Comment: decaf coffee - Recreational Drug Use Recreational Drug Use: No Review of Systems - Review of Systems Review Of Systems: See Below Musculoskeletal: Reports: Shoulder Pain Skin: Reports: No Symptoms Neurological: Reports: No Symptoms ED EXAM, GENERAL - Physical Exam Exam: See Below Free Text/Narrative:: Examination left shoulder I don't appreciate any erythema there is no edema noted I don't appreciate any step-offs he has about 10 abduction without pain radial pulse is +2 does not tolerate any amount of passive movement Exam Limited By: No Limitations General Appearance: Alert, WD/WN, No Apparent Distress Course - Vital Signs Last Recorded V/S: Last Vital Signs Temp 95.4 F 08/28/18 21:11 Pulse 58 L 08/28/18 21:11 Resp 16 08/28/18 21:11 BP 135/78 08/28/18 21:11 Pulse Ox 97 08/28/18 21:11 Departure - Departure Time of Disposition: 22:09 Disposition: Home, Self-Care 01 Condition: Fair Clinical Impression: Left shoulder strain Qualifiers: Encounter type: initial encounter Qualified Code(s): S46.912A - Strain of unspecified muscle, fascia and tendon at shoulder and upper arm level, left arm , initial encounter - Discharge Information Referrals: Cesario Ricks MD [Primary Care Provider] - Forms: ED Department Discharge Additional Instructions: Please followup with your primary care provider in 3-5 days if not better, please call return to the emergency department with worsening of symptoms. - Assessment/Plan Plan: Assessment Acuity = acute Site and laterality = left shoulder strain Etiology = secondary to twisting injury Manifestations = difficulty with abduction Location of injury = Home Lab values = x-ray shows no acute fracture Plan His any use Tylenol as needed for pain control he will follow-up with his primary care this week for further evaluation always concern for rotator cuff injury further imaging may be required This note was dictated using [employer] voice recognition software please call with any questions on syntax or grammar.
--- NOTE | 2018-08-28 22:02 | CRLCR ---
HISTORY: Left shoulder injury. TECHNIQUE: Three views of the left shoulder. COMPARISON: No prior. FINDINGS: There is no acute fracture or dislocation. Mild glenohumeral and moderate AC joint degenerative arthrosis changes. Chronic cystic or erosive change involving greater tuberosity. IMPRESSION: 1. No acute fracture or dislocation. 2. Degenerative changes. Dictated by Alexey Bhatti MD @ 08/28/2018 10:00:32 PM Dictated by: Alexey Bhatti MD @ 08/28/2018 22:00:34 (Electronically Signed)
== END 2018-08-28 22:29 | disposition home or self-care (01) ==
LOC: JP.ED 20:09
DX: S46.912A Strain of unspecified muscle, fascia and tendon at shoulder and upper arm level, left arm, initial encounter (principal); I48.91 Unspecified atrial fibrillation; I10 Essential (primary) hypertension; I25.2 Old myocardial infarction; I25.10 Atherosclerotic heart disease of native coronary artery without angina pectoris; Z95.5 Presence of coronary angioplasty implant and graft; E11.9 Type 2 diabetes mellitus without complications; F41.9 Anxiety disorder, unspecified; F32.9 Major depressive disorder, single episode, unspecified; Z88.1 Allergy status to other antibiotic agents; Z88.7 Allergy status to serum and vaccine; Z88.8 Allergy status to other drugs, medicaments and biological substances; Z88.2 Allergy status to sulfonamides; X50.1XXA Overexertion from prolonged static or awkward postures, initial encounter; Z79.82 Long term (current) use of aspirin; Z79.4 Long term (current) use of insulin
CPT/HCPCS: 73030-LT; 99282; 99283-25

== ENCOUNTER 2019-05-03 10:51 | Day surgery (SDC) | payer MEDICARE, BC ==
[~2019-05-03 10:51] MED LIST changes: +Midazolam 1 MG/ML 2 ML SDV ONE; +Propofol 200 MG/20 ML SDV ONE; -Sodium Chloride 0.9% 10 ML Syringe FLUSH PRN; +fentaNYL 100 MCG/2 ML SDV ONE
[2019-05-03] MEDS ORDERED: Carvedilol 12.5 MG Tab PO ONE (11:14)
[2019-05-03] MEDS ORDERED: Dextrose 5%-Lactated Ringers 1,000 ML IV SCH (11:30)
[2019-05-03 15:16] VITALS: BP 149/84; PULSE 78
--- NOTE | 2019-05-12 12:21 | OR ---
DATE OF PROCEDURE: 05/03/2019 SURGEON: Sumeet Larsen MD PREOPERATIVE DIAGNOSIS: Anemia. POSTOPERATIVE DIAGNOSIS: Anemia associated with: 1. Mild antral gastritis. 2. Single small polyp of transverse colon (4 mm). 3. No upper GI endoscopic or colonoscopic suggestive of potential bleeding sites. OPERATIVE PROCEDURE: 1. Esophagogastroduodenoscopy with antral biopsies for CLOtest. 2. Colonoscopy with polypectomy by snare technique. ANESTHESIA: Some IV sedation. INDICATIONS FOR PROCEDURE: This is an 83-year-old presenting with some ongoing anemia. The most recent hemoglobin was obtained on 04/25/2019 which was 8.7. This showed microcytic hypochromic features and the patient will undergo an upper and lower endoscopy for diagnostic evaluation, looking for any potential GI bleeding sites. Potential risks of the procedure including bleeding and perforation were discussed, and the patient wishes to proceed. DETAILS OF PROCEDURE: The patient was taken to the operating room, placed in a left lateral decubitus position. IV sedation was administered after which the upper GI endoscope was passed orally through the length of the esophagus and into the stomach with retroflexion view of the fundus, thereafter through the pyloric channel into the junction of the 3rd and 4th portions of the duodenum. Findings included normal hypopharynx, larynx, upper esophageal sphincter, and esophageal body. At the EG junction, minimal hiatal hernia was present with no significant inflammation. No stricturing or plaquing was seen within the stomach. There was some patchy redness in the antrum, otherwise the gastric exam was unremarkable. The pyloric channel and duodenum to the junction of the 3rd and 4th portions were unremarkable. The ampulla of Vater was identified and there was no evidence of neoplasia at that site. At this point, biopsies obtained from the antrum and sent for CLOtest for H. pylori. Minimal bleeding from the biopsy site was seen and the procedure then concluded. Attention was then taken to the colonoscopy. The initial digital rectal exam was performed, it was unremarkable. The colonoscope was then passed into the rectum with retroflexion revealing uncomplicated hemorrhoidal columns. The scope was eventually passed to the level of the cecum. The prep was fairly good with only a small amount of liquid stool present. To that level, the only abnormality was a roughly 4-mm polyp located in the transverse colon. Otherwise, there was no diverticula, areas of colitis, and no additional signs of polyps or other neoplastic changes. The polyp was then encircled at its base and removed by means of the cautery snare technique and sent for histologic evaluation. Good hemostasis was noted at the polypectomy site. The scope was then withdrawn and the procedure then concluded. In the view, there were no findings suggestive of an upper or lower GI bleeding site on today's examination, the pathologic findings would not likely be resulting in any significant bleeding. We did repeat some labs today and hemoglobin was 9.3. We checked ferritin, B12, and folate. Ferritin was 22, B12 of 445, and folate of 16.7, all within normal range. While the ferritin was on the lower end of normal, this would still not likely be limiting in terms of formation of hemoglobin. The patient will be following up with Nuria Marmolejo DO at [facility] in roughly 1 week for followup of the anemia. Sumeet Larsen MD /[id number]
== END 2019-05-03 15:56 | disposition home or self-care (01) ==
LOC: JP.SDS 10:51
PROVIDERS: ATTEND Surgery
DX: D64.9 Anemia, unspecified (principal); K44.9 Diaphragmatic hernia without obstruction or gangrene; K29.70 Gastritis, unspecified, without bleeding; K64.9 Unspecified hemorrhoids; K63.5 Polyp of colon; I10 Essential (primary) hypertension; I25.10 Atherosclerotic heart disease of native coronary artery without angina pectoris; I48.91 Unspecified atrial fibrillation; G47.33 Obstructive sleep apnea (adult) (pediatric); Z86.73 Personal history of transient ischemic attack (TIA), and cerebral infarction without residual deficits
CPT/HCPCS: 36415; 43239; 45385; 82607; 82728; 82746; 85025; 85610; 87081; 88305; A9270; J2250; J2704; J3010; J7121

== ENCOUNTER 2020-10-30 14:05 | Emergency (ER) | payer MEDICARE, BC ==
[2020-10-30 14:34] VITALS: BP 112/52; PULSE 61
--- NOTE | 2020-10-30 14:34 | EDM.PDOC ---
ED HPI GENERAL MEDICAL PROBLEM - General Chief Complaint: Respiratory Problem Stated Complaint: DIFF. BREATHING Time Seen by Provider: 10/30/20 14:48 Source of Information: Reports: Patient History Limitations: Reports: No Limitations - History of Present Illness INITIAL COMMENTS - FREE TEXT/NARRATIVE: This is an 85 year old male presenting with difficulty breathing. Patient rep orts 2-3 days of feeling like it is difficult to take a breath. He states that when he tries to take a breath, he feels a "tightness" and "pulling" in his throat that feels like its trying to close up. He reports that it feels like the muscles around his neck/throat are tightening when he tries to take a breath. When he exhales, the feeling resolves. He reports a chronic cough that is productive of yellow sputum. this is unchanged recently. no fever or chills. of note, he does admit to coughing whenever he tries to drink water. He states this is chronic and has been going on for a long time. he denies difficult swallowing. He denies voice changes or hoarseness. He denies any chest pain. He reports some swelling in his lower extremities, but this is normal for him occasionally. - Related Data Allergies Allergy/AdvReac Type Severity Reaction Status Date / Time Cephalosporins Allergy Hives Verified 10/30/20 14:42 gabapentin Allergy Other Verified 10/30/20 14:42 Iodinated Contrast Media Allergy Burning Verified 10/30/20 14:42 [Iodinated Contrast Media - IV Dye] iodine Allergy Burning Verified 10/30/20 14:42 niacin Allergy Cannot Verified 10/30/20 14:42 Remember oxycodone HCl Allergy Nausea and Verified 10/30/20 14:42 [From OxyContin] Vomiting Sulfa (Sulfonamide Allergy Hives Verified 10/30/20 14:42 Antibiotics) vancomycin Allergy Hives Verified 10/30/20 14:42 levofloxacin AdvReac Intermediate Itching Verified 10/30/20 14:42 allobarbital AdvReac Diarrhea Verified 10/30/20 14:42 allopurinol AdvReac Diarrhea Verified 10/30/20 14:42 tetanus and diphtheria AdvReac Vomiting Verified 10/30/20 14:42 toxoids [Tetanus&Diphtheria Toxoid] DIAGNOTIC MATERIAL Allergy Other Uncoded 10/30/20 14:42 Home Meds: Home Meds Carvedilol [Coreg] 12.5 mg PO BID 05/29/13 [History] Colchicine [Colcrys] 0.6 mg PO DAILY 05/29/13 [History] Nitroglycerin [Nitrostat] 0.4 mg PO ASDIRECTED PRN 09/05/14 [History] Furosemide 80 mg PO DAILY 02/28/17 [History] Insulin Glargine,Hum.Rec.Anlog [Basaglar Kwikpen U-100] 10 unit SQ BEDTIME 05/31/17 [History] Warfarin Dosing [Coumadin Ask] 2.5 - 5 mg PO ASDIRECTED 08/28/18 [History] Aspirin [Adult Low Dose Aspirin EC] 81 mg PO DAILY 04/26/19 [History] Ammonium Lactate [Lac-Hydrin 12% Crm] 1 applic TOP BID 07/16/19 [History] metOLazone [Metolazone] 2.5 mg PO .2XAWEEK 07/16/19 [History] Acetaminophen [Tylenol Extra Strength] 500 mg PO Q6H PRN 08/10/20 [History] Omeprazole 20 mg PO DAILY 08/10/20 [History] Potassium Chloride 20 meq PO BID 08/10/20 [History] Past Medical History HEENT History: Reports: Cataract, Impaired Vision Cardiovascular History: Reports: Afib, Blood Clots/VTE/DVT, CAD, High Cholesterol, Hypertension, [place], PVD, SOB on Exertion, Stents Respiratory History: Reports: Sleep Apnea, Other (See Below) Other Respiratory History: uses cpap and oxygen at night Gastrointestinal History: Reports: Cholelithiasis, GI Bleed Genitourinary History: Reports: BPH, Prostate Disorder Other Genitourinary History: radiation to prostate Musculoskeletal History: Reports: Back Pain, Chronic, Fracture, Gout, Osteoarthritis Other Musculoskeletal History: left shoulder pain Neurological History: Reports: CVA, Neuropathy, Peripheral Psychiatric History: Reports: Anxiety, Depression Endocrine/Metabolic History: Reports: Diabetes, Type II, Obesity/BMI 30+ Hematologic History: Reports: Anemia, Blood Transfusion(s) Immunologic History: Reports: None Oncologic (Cancer) History: Reports: Prostate Dermatologic History: Reports: Other (See Below) Other Dermatologic History: rash - Infectious Disease History Infectious Disease History: Reports: Chicken Pox, Measles, Mumps - Past Surgical History HEENT Surgical History: Reports: Cataract Surgery Cardiovascular Surgical History: Reports: Coronary Artery Stent GI Surgical History: Reports: Appendectomy, Cholecystectomy, Colonoscopy, EGD, Hernia, Inguinal Male Surgical History: Reports: Prostate Biopsy Neurological Surgical History: Reports: Lumbar Spine Musculoskeletal Surgical History: Reports: Carpal Tunnel, Hip Replacement, Shoulder Replacement Other Musculoskeletal Surgeries/Procedures:: back surgery Social & Family History - Family History Family Medical History: No Pertinent Family History - Tobacco Use Tobacco Use Status *Q: Never Tobacco User - Caffeine Use Caffeine Use: Reports: Coffee Caffeine Use Comment: decaf coffee ED ROS GENERAL - Review of Systems Review Of Systems: Comprehensive ROS is negative, except as noted in HPI. ED EXAM, GENERAL - Physical Exam Exam: See Below Exam Limited By: No Limitations General Appearance: Alert, WD/WN, No Apparent Distress Throat/Mouth: Normal Oropharynx, Normal Voice, No Airway Compromise Head: Atraumatic, Normocephalic. No: Facial Swelling Neck: Normal Inspection, Supple, Non-Tender, Full Range of Motion, Other (no swelling) Respiratory/Chest: No Respiratory Distress, Lungs Clear, Normal Breath Sounds, No Accessory Muscle Use, Chest Non-Tender. No: Respiratory Distress, Crackles, Rales, Rhonchi, Wheezing, Stridor Cardiovascular: Normal Peripheral Pulses, Irregularly Irregular, Other (Bilateral lower extremity edema present) Extremities: Normal Capillary Refill Neurological: Alert, Oriented, CN II-XII Intact Skin Exam: Warm, Dry, Normal Color #1 Interpretation EKG Date: 10/30/20 Time: 15:10 Rhythm: A-Fib P-Wave: Absent EKG Interpretation Comments: A fib Course - Vital Signs Last Recorded V/S: Last Vital Signs Temp 97.7 F 10/30/20 14:44 Pulse 61 10/30/20 14:44 Resp 18 10/30/20 14:44 BP 112/52 L 10/30/20 14:44 Pulse Ox 96 10/30/20 14:44 - Orders/Labs/Meds Orders: Active Orders 24 hr Category Date Time Status Chest 2V [CR] Stat Exams 10/30/20 14:59 Taken Neck Soft Tissue [CR] Stat Exams 10/30/20 14:59 Taken EKG 12 Lead [EK] Routine Ther 10/30/20 14:35 Ordered Labs: Laboratory Tests 06/25/21 06/25/21 06/25/21 Range/Units 15:12 15:14 15:14 WBC 3.6 L (4.5-11.0) K/uL RBC 3.67 L (4.30-5.90) M/uL Hgb 8.6 L (12.0-15.0) g/dL Hct 28.4 L (40.0-54.0) % MCV 77 L (80-98) fL MCH 23 L (27-31) pg MCHC 30 L (32-36) % Plt Count 153 (150-400) K/uL Neut % (Auto) 59.0 (36-66) % Lymph % (Auto) 27.5 (24-44) % [place] % (Auto) 11.0 H (2-6) % Eos % (Auto) 2.2 (2-4) % Baso % (Auto) 0.3 (0-1) % PT 26.7 H (9.5-12.0) sec INR 2.49 H (0.80-1.20) Sodium 141 (140-148) mmol/L Potassium 4.4 (3.6-5.2) mmol/L Chloride 107 (100-108) mmol/L Carbon Dioxide 28 (21-32) mmol/L Anion Gap 6.3 (5.0-14.0) mmol/L BUN 23 H (7-18) mg/dL Creatinine 1.2 (0.8-1.3) mg/dL Est Cr Clr Drug Dosing 50.86 mL/min Estimated GFR (MDRD) 58 L (>60) Glucose 137 H (74-106) mg/dL Calcium 8.6 (8.5-10.1) mg/dL Troponin I < 0.017 (0.000-0.056) ng/mL NT-Pro-B Natriuret Pep 3937 H (5-450) pg/mL Departure - Departure Time of Disposition: 16:15 Disposition: Home, Self-Care 01 Clinical Impression: Dyspnea - Discharge Information Instructions: Shortness of Breath, Adult, [place] Referrals: Mary Lou PA-C [Primary Care Provider] - Forms: ED Department Discharge Additional Instructions: The cause of your symptoms is not entirely clear at this time. You should follow up with your doctor on monday or monday for further evaluation. Return to the ED if you develop worsening shortness of breath, fever, noisy breathing, or other concerning symptoms. Sepsis Event Note (ED) - Focused Exam Vital Signs: Vital Signs Temp Pulse Resp BP Pulse Ox 10/30/20 14:44 97.7 F 61 18 112/52 L 96 10/30/20 14:31 97.7 F 61 18 112/52 L 96 - Problem List Review Problem List Initiated/Reviewed/Updated: Yes - My Orders Last 24 Hours: My Active Orders 10/30/20 14:35 EKG 12 Lead [EK] Routine 10/30/20 14:59 Chest 2V [CR] Stat Neck Soft Tissue [CR] Stat - Assessment/Plan Last 24 Hours: My Active Orders 10/30/20 14:35 EKG 12 Lead [EK] Routine 10/30/20 14:59 Chest 2V [CR] Stat Neck Soft Tissue [CR] Stat Plan: This is an 85 year old male presenting with difficulty breathing, stating it feels like his throat/upper airway is trying to close when he takes a breath in and then it improves when he exhales. Differential diagnosis considered includes foreign body, tracheal stenosis, subglottic stenosis, epiglottitis, mass, esophageal stricture, achalasia, ACS, among others. He is afebrile and well appearing in the ED with normal oxygen saturations. There is no hoarseness or ot her voice changes. There is no stridor or other evidence of upper or lower airway obstruction at this time. EKG showed atrial fibrillation, which appears to be chronic. He is anticoagulated with warfarin and his INR is therapeutic. Troponin is negative and there is no evidence of cardiac ischemia at this time. I doubt this is referred cardiac symptoms. CXR appears unchanged from previous chest imaging - no obvious lobar pneumonia or pulmonary edema. His BNP is elevated, but it sounds like he has not taken his diuretics recently so I encouraged him to take those as prescribed. His presentation today is not consistent with CHF exacerbation. His oxygen saturations have remained >95% on room air and there has been no respiratory distress or stridor while in the ED. The cause of his symptoms is not entirely clear, could still be a mass or stricture causing his symptoms. However, there is no indication for emergent evaluation for those things today. He likely requires further evaluation with laryngoscopy and/or EGD, though I see no signs that this needs to be done emergently today. He is appropriate for discharge home with close follow up with primary care for further evaluation of his symptoms.
--- NOTE | 2020-11-02 09:28 | CR ---
CHEST: 2 view CLINICAL HISTORY:SOB COMPARISON:CT chest 07/26/2019 FINDINGS: There is patchy density in the left lower lobe which is unchanged since prior CT. There is some minimal streaky density in the right lateral lung base which has increased since prior study. There is some ill-definition of the posterior right hemidiaphragm. Lower lobe infiltrate is not excluded. Patient does have underlying fibrosis. Heart and pulmonary vascularity are normal. IMPRESSION: Underlying pulmonary fibrosis Density in the right lower lobe may have increased since prior study. A right lower lobe pneumonia is not excluded Chest 2V, Neck Soft Tissue CLINICAL HISTORY: Tightness upper airway FINDINGS: Prevertebral soft tissues are unremarkable. Epiglottis is not well defined. This may be positional. The area epiglottic folds appear well demarcated. Subglottic airway has a normal contour. Impression: Ill-definition of the epiglottis is most likely positional but clinical correlation is necessary. Aryepiglottic folds are visualized
== END 2020-10-30 17:06 | disposition home or self-care (01) ==
LOC: JP.ED 14:05
DX: R06.00 Dyspnea, unspecified (principal); R60.0 Localized edema; E11.9 Type 2 diabetes mellitus without complications; E66.9 Obesity, unspecified; I25.10 Atherosclerotic heart disease of native coronary artery without angina pectoris; E78.00 Pure hypercholesterolemia, unspecified; I10 Essential (primary) hypertension; I48.91 Unspecified atrial fibrillation; Z79.01 Long term (current) use of anticoagulants; Z79.82 Long term (current) use of aspirin; Z79.899 Other long term (current) drug therapy; Z91.041 Radiographic dye allergy status; Z88.2 Allergy status to sulfonamides; Z88.5 Allergy status to narcotic agent; Z88.7 Allergy status to serum and vaccine; Z79.4 Long term (current) use of insulin
CPT/HCPCS: 36415; 70360; 70360-26; 71046; 71046-26; 80048; 83880; 84484; 85025; 85610; 93005; 93010; 99284; 99285-25

== ENCOUNTER 2021-03-01 10:17 | Day surgery (SDC) | payer MEDICARE, BC ==
[2021-03-01] MEDS ORDERED: Propofol 200 MG/20 ML SDV ONE (10:32)
[2021-03-01] MEDS ORDERED: Sodium Chloride 0.9% 1,000 ML IV SCH (11:00)
[2021-03-01 13:16] VITALS: BP 144/79; PULSE 82
--- NOTE | 2021-03-01 19:11 | OR ---
DATE OF PROCEDURE: 03/01/2021 SURGEON: Ilan De La Fuente MD PROCEDURE: Esophagogastroduodenoscopy. FINDINGS: Normal EGD. PREOPERATIVE DIAGNOSIS: Concern for gastrointestinal bleed. POSTOPERATIVE DIAGNOSIS: Concern for gastrointestinal bleed. RISKS: Risks, benefits, alternatives, and limitations including, but not limited to infection, bleeding, perforation, false positives, and false negatives were explained to the patient and they wished to proceed. PROCEDURE IN DETAIL: The patient was placed in left lateral decubitus position. The EGD scope was introduced and advanced atraumatically to the second part of the duodenum. No evidence of duodenitis or ulceration were noted. No old or new blood. No ulceration. Within the stomach itself, there was no evidence of gastritis. No old or new blood. The GE junction was normal. The esophagus was normal. The air was removed from the stomach without difficulty. The patient tolerated procedure well. Ilan De La Fuente MD /[id number]
== END 2021-03-01 13:18 | disposition home or self-care (01) ==
LOC: JP.SDS 10:17
PROVIDERS: ATTEND Surgery
DX: K92.2 Gastrointestinal hemorrhage, unspecified (principal); I25.10 Atherosclerotic heart disease of native coronary artery without angina pectoris; I50.9 Heart failure, unspecified; I48.91 Unspecified atrial fibrillation; E11.22 Type 2 diabetes mellitus with diabetic chronic kidney disease; N18.9 Chronic kidney disease, unspecified; I13.0 Hypertensive heart and chronic kidney disease with heart failure and stage 1 through stage 4 chronic kidney disease, or unspecified chronic kidney disease; Z86.73 Personal history of transient ischemic attack (TIA), and cerebral infarction without residual deficits
CPT/HCPCS: 43235; J2704; J7030

== ENCOUNTER 2021-04-26 11:49 | Inpatient (IN) | payer MEDICARE, BC ==
--- NOTE | 2021-04-26 13:29 | EDM.PDOC ---
ED HPI GENERAL MEDICAL PROBLEM - General Chief Complaint: Lower Extremity Injury/Pain Stated Complaint: LT LEG SWELLING AND SORE Time Seen by Provider: 04/26/21 13:23 Source of Information: Reports: Patient History Limitations: Reports: No Limitations - History of Present Illness INITIAL COMMENTS - FREE TEXT/NARRATIVE: pt arrived with increased pain in his leg. It is swollen and tight. Onset: Gradual Duration: Day(s): Associated Symptoms: Reports: Other (increased pain. ) Left Lower Leg Pain Score (Numeric/FACES): 10 - Related Data Allergies Allergy/AdvReac Type Severity Reaction Status Date / Time Cephalosporins Allergy Hives Verified 03/24/21 08:24 enoxaparin [From Lovenox] Allergy Dizziness Verified 03/24/21 08:24 gabapentin Allergy Other Verified 03/24/21 08:24 Iodinated Contrast Media Allergy Burning Verified 03/24/21 08:24 [Iodinated Contrast Media - IV Dye] iodine Allergy Burning Verified 03/24/21 08:24 niacin Allergy Cannot Verified 03/24/21 08:24 Remember Sulfa (Sulfonamide Allergy Hives Verified 03/24/21 08:24 Antibiotics) vancomycin Allergy Hives Verified 03/24/21 08:24 levofloxacin AdvReac Intermediate Itching Verified 03/24/21 08:24 allobarbital AdvReac Diarrhea Verified 03/24/21 08:24 allopurinol AdvReac Diarrhea Verified 03/24/21 08:24 oxycodone HCl AdvReac Nausea and Verified 04/28/21 14:38 [From OxyContin] Vomiting tetanus and diphtheria AdvReac Vomiting Verified 03/24/21 08:24 toxoids [Tetanus&Diphtheria Toxoid] Home Meds: Home Meds Carvedilol [Coreg] 12.5 mg PO BID 05/29/13 [History] Colchicine [Colcrys] 0.6 mg PO DAILY 05/29/13 [History] Nitroglycerin [Nitrostat] 0.4 mg PO ASDIRECTED PRN 09/05/14 [History] Insulin Glargine,Hum.Rec.Anlog [Basaglar Kwikpen U-100] 5 unit SQ BEDTIME 05/31/17 [History] Warfarin Dosing [Coumadin Ask] 2.5 - 5 mg PO ASDIRECTED 08/28/18 [History] Aspirin [Adult Low Dose Aspirin EC] 81 mg PO DAILY 04/26/19 [History] Ammonium Lactate [Lac-Hydrin 12% Crm] 1 applic TOP BID 07/16/19 [History] Acetaminophen [Tylenol Extra Strength] 500 mg PO Q6H PRN 08/10/20 [History] Omeprazole 20 mg PO DAILY 08/10/20 [History] Potassium Chloride 40 meq PO QAM 08/10/20 [History] Bumetanide [Bumex] 1 mg PO DAILY 02/23/21 [History] Cholecalciferol (Vitamin D3) [Vitamin D3] 2,000 unit PO DAILY 02/23/21 [History] Ergocalciferol (Vitamin D2) [Vitamin D2] 1.25 mg PO .1XWEEK 02/23/21 [History] Iron,Carbonyl/Ascorbic Acid [Vitron-C Tablet] 1 tab PO BID 02/23/21 [History] Pantoprazole Sodium [Protonix] 40 mg PO BID 03/24/21 [History] Potassium Chloride [K-Tab ER] 20 meq PO QPM 03/24/21 [History] Amoxicillin/Potassium Clav [Augmentin 875-125 Tablet] 1 each PO BID #8 tablet 04/29/21 [Rx] Past Medical History HEENT History: Reports: Cataract, Impaired Vision Other HEENT History: wears glasses Cardiovascular History: Reports: Afib, Blood Clots/VTE/DVT, CAD, High Choles terol, Hypertension, ID, PVD, SOB on Exertion, Stents Respiratory History: Reports: Sleep Apnea, Other (See Below) Other Respiratory History: uses cpap and oxygen at night Gastrointestinal History: Reports: Cholelithiasis, GI Bleed Genitourinary History: Reports: BPH, Prostate Disorder Other Genitourinary History: radiation to prostate Musculoskeletal History: Reports: Back Pain, Chronic, Fracture, Gout, Osteoarthritis Other Musculoskeletal History: left shoulder pain Neurological History: Reports: CVA, Neuropathy, Peripheral Psychiatric History: Reports: Anxiety, Depression Endocrine/Metabolic History: Reports: Diabetes, Type II, Obesity/BMI 30+ Hematologic History: Reports: Anemia, Anticoagulation Therapy, Blood T ransfusion(s) Immunologic History: Reports: None Oncologic (Cancer) History: Reports: Prostate Dermatologic History: Reports: Other (See Below) Other Dermatologic History: rash - Infectious Disease History Infectious Disease History: Reports: Chicken Pox, Measles, Mumps - Past Surgical History Head Surgeries/Procedures: Reports: None HEENT Surgical History: Reports: Cataract Surgery Cardiovascular Surgical History: Reports: Coronary Artery Stent Respiratory Surgical History: Reports: None GI Surgical History: Reports: Appendectomy, Cholecystectomy, Colonoscopy, EGD, Hernia, Inguinal Male Surgical History: Reports: Prostate Biopsy Endocrine Surgical History: Reports: None Neurological Surgical History: Reports: Lumbar Spine Musculoskeletal Surgical History: Reports: Carpal Tunnel, Hip Replacement, Shoulder Replacement, Other (See Below) Other Musculoskeletal Surgeries/Procedures:: back surgery Oncologic Surgical History: Reports: None Dermatological Surgical History: Reports: None Social & Family History - Family History Family Medical History: No Pertinent Family History - Tobacco Use Tobacco Use Status *Q: Never Tobacco User - Caffeine Use Caffeine Use: Reports: Coffee Caffeine Use Comment: decaf coffee - Recreational Drug Use Recreational Drug Use: No Review of Systems - Review of Systems Review Of Systems: See Below Constitutional: Reports: No Symptoms Eyes: Reports: No Symptoms Ears: Reports: No Symptoms Nose: Reports: No Symptoms Mouth/Throat: Reports: No Symptoms Respiratory: Reports: No Symptoms Cardiovascular: Reports: No Symptoms GI/Abdominal: Reports: No Symptoms Genitourinary: Reports: No Symptoms Musculoskeletal: Reports: Other ( increased pain and swelling in the left lower leg. ) Skin: Reports: Other ( redness present. ) ED EXAM, GENERAL - Physical Exam Exam: See Below Free Text/Narrative:: pt arrived with increased pain in the lower left leg. There is increased swelling and redness. Exam Limited By: No Limitations General Appearance: Alert, Anxious Ears: Normal TMs Nose: Normal Inspection Throat/Mouth: Normal Inspection Head: Atraumatic Respiratory/Chest: No Respiratory Distress Cardiovascular: Regular Rate, Rhythm GI/Abdominal: Soft, Non-Tender (Male) Exam: Deferred Rectal (Males) Exam: Deferred Back Exam: Normal Inspection Neurological: Alert, Oriented, Normal Cognition Psychiatric: Anxious Skin Exam: Other (pt has increased redness and swelling in the left lower leg. It is very tender to palpate. His foot is warm. pulses are not bounding. ) Lymphatic: Other Course - Vital Signs Last Recorded V/S: Last Vital Signs Temp 36.1 C 04/29/21 11:00 Pulse 76 04/29/21 11:00 Resp 16 04/29/21 11:00 BP 110/63 04/29/21 11:00 Pulse Ox 93 L 04/29/21 11:00 - Orders/Labs/Meds Labs: Laboratory Tests 04/26/21 04/26/21 04/26/21 Range/Units 12:00 13:34 13:34 WBC (4.5-11.0) K/uL RBC (4.30-5.90) M/uL Hgb (12.0-15.0) g/dL Hct (40.0-54.0) % MCV (80-98) fL MCH (27-31) pg MCHC (32-36) % Plt Count (150-400) K/uL Neut % (Auto) (36-66) % Lymph % (Auto) (24-44) % Mcminn % (Auto) (2-6) % Eos % (Auto) (2-4) % Baso % (Auto) (0-1) % Sodium 137 L (140-148) mmol/L Potassium 4.5 (3.6-5.2) mmol/L Chloride 102 (100-108) mmol/L Carbon Dioxide 28 (21-32) mmol/L Anion Gap 11.5 (5.0-14.0) mmol/L BUN 20 H (7-18) mg/dL Creatinine 1.3 (0.8-1.3) mg/dL Est Cr Clr Drug Dosing 46.95 mL/min Estimated GFR (MDRD) 52 L (>60) Glucose 101 (74-106) mg/dL Calcium 9.0 (8.5-10.1) mg/dL Total Bilirubin 0.6 (0.2-1.0) mg/dL AST 26 (15-37) U/L ALT 33 (12-78) U/L Alkaline Phosphatase 156 H D (46-116) U/L C-Reactive Protein 1.08 H (0.0-0.3) mg/dL Total Protein 7.6 (6.4-8.2) g/dL Albumin 2.7 L (3.4-5.0) g/dL Globulin 4.9 H (2.3-3.5) g/dL Albumin/Globulin Ratio 0.6 L (1.2-2.2) Urine Color (YELLOW) Urine Appearance (CLEAR) Urine pH (5.0-8.0) Ur Specific [place] (1.008-1.030) Urine Protein (NEGATIVE) mg/dL Urine Glucose (UA) (NEGATIVE) mg/dL Urine Ketones (NEGATIVE) mg/dL Urine Occult Blood (NEGATIVE) Urine Nitrite (NEGATIVE) Urine Bilirubin (NEGATIVE) Urine Urobilinogen (0.2-1.0) EU/dL Ur Leukocyte Esterase (NEGATIVE) Urine RBC (0-5) Urine WBC (0-5) Ur Epithelial Cells Amorphous Sediment Urine Bacteria Urine Mucus Influenza Type A RNA Negative (NEGATIVE) RSV RNA (INAAT) Negative (NEGATIVE) Influenza Type B RNA Negative (NEGATIVE) SARS-CoV-2 RNA (IZABEL) Negative (NEGATIVE) 04/26/21 04/26/21 Range/Units 13:34 15:41 WBC 7.7 (4.5-11.0) K/uL RBC 4.25 L (4.30-5.90) M/uL Hgb 11.3 L D (12.0-15.0) g/dL Hct 36.6 L (40.0-54.0) % MCV 86 (80-98) fL MCH 27 (27-31) pg MCHC 31 L (32-36) % Plt Count 219 (150-400) K/uL Neut % (Auto) 72.7 H (36-66) % Lymph % (Auto) 16.6 L (24-44) % Mcminn % (Auto) 9.2 H (2-6) % Eos % (Auto) 1.2 L (2-4) % Baso % (Auto) 0.3 (0-1) % Sodium (140-148) mmol/L Potassium (3.6-5.2) mmol/L Chloride (100-108) mmol/L Carbon Dioxide (21-32) mmol/L Anion Gap (5.0-14.0) mmol/L BUN (7-18) mg/dL Creatinine (0.8-1.3) mg/dL Est Cr Clr Drug Dosing mL/min Estimated GFR (MDRD) (>60) Glucose (74-106) mg/dL Calcium (8.5-10.1) mg/dL Total Bilirubin (0.2-1.0) mg/dL AST (15-37) U/L ALT (12-78) U/L Alkaline Phosphatase (46-116) U/L C-Reactive Protein (0.0-0.3) mg/dL Total Protein (6.4-8.2) g/dL Albumin (3.4-5.0) g/dL Globulin (2.3-3.5) g/dL Albumin/Globulin Ratio (1.2-2.2) Urine Color Yellow (YELLOW) Urine Appearance Slightly cloudy A (CLEAR) Urine pH 5.5 (5.0-8.0) Ur Specific [place] 1.015 (1.008-1.030) Urine Protein Negative (NEGATIVE) mg/dL Urine Glucose (UA) Negative (NEGATIVE) mg/dL Urine Ketones Negative (NEGATIVE) mg/dL Urine Occult Blood Trace-intact H (NEGATIVE) Urine Nitrite Positive H (NEGATIVE) Urine Bilirubin Negative (NEGATIVE) Urine Urobilinogen 0.2 (0.2-1.0) EU/dL Ur Leukocyte Esterase Small H (NEGATIVE) Urine RBC 5-10 H (0-5) Urine WBC 75-100 H (0-5) Ur Epithelial Cells Few Amorphous Sediment Not seen Urine Bacteria Many Urine Mucus Few Influenza Type A RNA (NEGATIVE) RSV RNA (INAAT) (NEGATIVE) Influenza Type B RNA (NEGATIVE) SARS-CoV-2 RNA (IZABEL) (NEGATIVE) Meds: Medications Discontinued Medications Generic Name Dose Route Start Last Admin Trade Name Freq PRN Reason Stop Dose Admin Acetaminophen 650 mg 04/26/21 20:01 Acetaminophen 325 Mg Tab PO Q4H PRN Pain (Mild 1-3)/fever Ammonium Lactate 0 gm 04/28/21 09:00 04/29/21 08:23 Ammonium Lactate 12% Lotion 225 Gm Bottle TOP 1 applic BID JIM Administration Aspirin 81 mg 04/27/21 09:00 04/29/21 08:23 Aspirin 81 Mg Tab.Ec PO 81 mg DAILY JIM Administration Bumetanide 2 mg 04/27/21 07:00 04/28/21 08:08 Bumetanide 2.5 Mg/10 Ml Mdv IVPUSH 2 mg Q12H JIM Administration Bumetanide 2 mg 04/29/21 08:00 04/29/21 08:20 Bumetanide 2.5 Mg/10 Ml Mdv IVPUSH 2 mg Q24H JIM Administration Carvedilol 12.5 mg 04/26/21 21:00 04/29/21 08:23 Carvedilol 12.5 Mg Tab PO 12.5 mg BID JIM Administration Colchicine 0.6 mg 04/27/21 09:00 04/29/21 08:23 Colchicine 0.6 Mg Tab PO 0.6 mg DAILY JIM Administration Dextrose 15 gm 04/26/21 20:01 Glucose Gel 15 Gm In 37.5 Gm Tube PO ONETIME PRN Hypoglycemia Dextrose/Water 50 ml 04/26/21 20:01 50% Dextrose In Water 50 Ml Syringe IV ONETIME PRN Hypoglycemia Piperacillin/Tazobactam/ 50 mls @ 100 mls/hr 04/26/21 15:45 04/26/21 16:11 Dextrose 3.375 gm/ Premix IV 04/26/21 16:14 100 mls/hr ONETIME ONE Administration Piperacillin Sod/Tazobactam 50 mls @ 100 mls/hr 04/26/21 22:00 04/27/21 03:44 Sod 3.375 gm/ Sodium Chloride IV 100 mls/hr Q6H JIM Administration Piperacillin/Tazobactam/ 50 mls @ 100 mls/hr 04/27/21 10:00 04/29/21 10:17 Dextrose 3.375 gm/ Premix IV 100 mls/hr Q6H JIM Administration Influenza Virus Vaccine 240 mcg 04/27/21 10:00 04/27/21 10:43 Flu Vacc [id number](65yr Up)/Pf 240 Mcg/0.7 Ml Syringe IM 04/27/21 10:01 240 mcg .ONCE ONE Administration Insulin Glargine 5 units 04/26/21 21:00 04/28/21 21:12 Insulin Glargine,Human Rec. Analog 100 Units/Ml 3 Ml Pen SUBCUT 5 unit BEDTIME JIM Administration Insulin Human Lispro 0 unit 04/26/21 20:01 04/29/21 13:23 Insulin Lispro 100 Unit/Ml 3 Ml Kwikpen SUBCUT Not Given [facility] Protocol Ondansetron HCl 4 mg 04/26/21 20:01 Ondansetron 4 Mg/2 Ml Sdv IV Q4H PRN Nausea/Vomiting Pantoprazole Sodium 40 mg 04/27/21 07:30 04/29/21 08:20 Pantoprazole 40 Mg Tab.Cr PO 40 mg ACBREAKFAST JIM Administration Polyethylene Glycol 17 gm 04/26/21 20:01 Polyethylene Glycol 3350 Powder 17 Gm Packet PO DAILY PRN Constipation Potassium Chloride 40 meq 04/27/21 09:00 04/29/21 08:21 Potassium Chloride 20 Meq Tab.Er PO 40 meq QAM JIM Administration Potassium Chloride 20 meq 04/27/21 17:00 04/28/21 16:18 Potassium Chloride 20 Meq Tab.Er PO 20 meq QPM JIM Administration Sodium Chloride 10 ml 04/26/21 20:01 Sodium Chloride 0.9% 10 Ml Syringe FLUSH ASDIRECTED PRN Keep Vein Open Warfarin Sodium 2.5 mg 04/27/21 13:00 04/29/21 13:23 Warfarin 2.5 Mg Tab PO 2.5 mg DAILY@1300 JIM Administration - Re-Assessments/Exams Free Text/Narrative Re-Assessment/Exam: 04/26/21 16:28 cat scan of the leg did not show involvement of the tib-fib. There is no localized abcess formation. There is tissue swelling and evidence of infection. Dr De La Fuente was consulted and he felt he needesd 2 days of iv antibiotics, He was given 3.75 of zosyn iv. Departure - Departure Time of Disposition: 08:00 Disposition: Admitted As Inpatient 66 Condition: Fair Clinical Impression: Cellulitis of left leg - Discharge Information Sepsis Event Note (ED) - Evaluation Sepsis Screening Result: No Definite Risk
--- NOTE | 2021-04-26 14:58 | CT ---
Lower Extremity wo Cont Lt CLINICAL HISTORY: Swelling pain and redness, diabetes TECHNIQUE: Multislice scanning was performed to the left tib-fib without IV contrast. Prescribed dose COMPARISON: None FINDINGS: There is motion on multiple image series. There is diffuse subcutaneous edema. This is most notable in the lower third of the calf. No abnormal fluid collections are identified. No bony destruction or periosteal reaction is identified in the tibia or fibula. There are diffuse arterial calcifications related to diabetes. No osseous lesions are seen in the tib-fib. There is severe degenerative changes and subchondral cyst formation in the visualized portions of the talus and calcaneus. There is a focus of bony resorption and loss of cortex in the midportion of the talus going into the subtalar joint. IMPRESSION: Moderate diffuse edema more notable in the lower third of the calf No focal abscess identified There is no evidence of osteomyelitis in the tib-fib. There is some localized bony loss and cortical loss in the inferior mid talus extending into the talocalcaneal joint. This may be degenerative change alone. The active destructive process is not excluded
[2021-04-26] MEDS ORDERED: Piperacillin/Tazobactam 3.375 GM in Sodium Chloride 0.9% 50 ML IV SCH ×2 (15:30→18:30)
[2021-04-26] MEDS ORDERED: Piperacillin/Tazobactam/Dext 3.375 GM in Premix Bag 1 BAG IV ONE (15:45)
[2021-04-26 19:16] LABS: CORONAVIRUS COVID-19 NAA NEGATIVE (NEGATIVE)
--- NOTE | 2021-04-26 19:48 | PCM.HP.2 ---
H&P History of Present Illness - General Date of Service: 04/26/21 Admit Problem/Dx: Admission Diagnosis/Problem Admission Diagnosis/Problem UTI, Urinary tract infectious disease Source of Information: Patient, Provider, RN Notes Reviewed History Limitations: Reports: No Limitations - History of Present Illness Initial Comments - Free Text/Narative: Mr. Mahoney is an 85-year-old gentleman who was admitted through the emergency department with increased swelling and erythema of his left leg as well as a urinary tract infection. Over the past few days has experienced increased swelling of the leg with increased erythema and tenderness. Because of the increase in pain he was seen and evaluated in the clinic today, then referred to the emergency department for further evaluation. He is on long-term oral anticoagulation with warfarin. CT scan of the leg was obtained in the emergency department and shows no evidence of osteomyelitis or abscess formation. He was also found to have evidence of urinary tract infection and has received 1 dose of Zosyn. Urine culture is pending. Left Lower Leg Pain Score (Numeric/FACES): 10 - Related Data Allergies/Adverse Reactions: Allergies Allergy/AdvReac Type Severity Reaction Status Date / Time Cephalosporins Allergy Hives Verified 03/24/21 08:24 enoxaparin [From Lovenox] Allergy Dizziness Verified 03/24/21 08:24 gabapentin Allergy Other Verified 03/24/21 08:24 Iodinated Contrast Media Allergy Burning Verified 03/24/21 08:24 [Iodinated Contrast Media - IV Dye] iodine Allergy Burning Verified 03/24/21 08:24 niacin Allergy Cannot Verified 03/24/21 08:24 Remember oxycodone HCl Allergy Nausea and Verified 03/24/21 08:24 [From OxyContin] Vomiting Sulfa (Sulfonamide Allergy Hives Verified 03/24/21 08:24 Antibiotics) vancomycin Allergy Hives Verified 03/24/21 08:24 levofloxacin AdvReac Intermediate Itching Verified 03/24/21 08:24 allobarbital AdvReac Diarrhea Verified 03/24/21 08:24 allopurinol AdvReac Diarrhea Verified 03/24/21 08:24 tetanus and diphtheria AdvReac Vomiting Verified 03/24/21 08:24 toxoids [Tetanus&Diphtheria Toxoid] DIAGNOTIC MATERIAL Allergy Other Uncoded 03/24/21 08:24 Home Medications: Home Meds Carvedilol [Coreg] 12.5 mg PO BID 01/22/14 [History] Colchicine [Colcrys] 0.6 mg PO DAILY 05/29/13 [History] Nitroglycerin [Nitrostat] 0.4 mg PO ASDIRECTED PRN 09/05/14 [History] Insulin Glargine,Hum.Rec.Anlog [Basaglar Kwikpen U-100] 5 unit SQ BEDTIME 05/31/17 [History] Warfarin Dosing [Coumadin Ask] 2.5 - 5 mg PO ASDIRECTED 08/28/18 [History] Aspirin [Adult Low Dose Aspirin EC] 81 mg PO DAILY 04/26/19 [History] Ammonium Lactate [Lac-Hydrin 12% Crm] 1 applic TOP BID 07/16/19 [History] Acetaminophen [Tylenol Extra Strength] 500 mg PO Q6H PRN 08/10/20 [History] Omeprazole 20 mg PO DAILY 08/10/20 [History] Potassium Chloride 40 meq PO QAM 08/10/20 [History] Bumetanide [Bumex] 1 mg PO DAILY 02/23/21 [History] Cholecalciferol (Vitamin D3) [Vitamin D3] 2,000 unit PO DAILY 02/23/21 [History] Ergocalciferol (Vitamin D2) [Vitamin D2] 1.25 mg PO .1XWEEK 02/23/21 [History] Iron,Carbonyl/Ascorbic Acid [Vitron-C Tablet] 1 tab PO BID 02/23/21 [History] Pantoprazole Sodium [Protonix] 40 mg PO BID 03/24/21 [History] Potassium Chloride [K-Tab ER] 20 meq PO QPM 03/24/21 [History] Past Medical History HEENT History: Reports: Cataract, Impaired Vision Other HEENT History: wears glasses Cardiovascular History: Reports: Afib, Blood Clots/VTE/DVT, CAD, High Cholesterol, Hypertension, CT, PVD, SOB on Exertion, Stents Respiratory History: Reports: Sleep Apnea, Other (See Below) Other Respiratory History: uses cpap and oxygen at night Gastrointestinal History: Reports: Cholelithiasis, GI Bleed Genitourinary History: Reports: BPH, Prostate Disorder Other Genitourinary History: radiation to prostate Musculoskeletal History: Reports: Back Pain, Chronic, Fracture, Gout, Osteoarthritis Other Musculoskeletal History: left shoulder pain Neurological History: Reports: CVA, Neuropathy, Peripheral Psychiatric History: Reports: Anxiety, Depression Endocrine/Metabolic History: Reports: Diabetes, Type II, Obesity/BMI 30+ Hematologic History: Reports: Anemia, Anticoagulation Therapy, Blood Transfusion(s) Immunologic History: Reports: None Oncologic (Cancer) History: Reports: Prostate Dermatologic History: Reports: Other (See Below) Other Dermatologic History: rash - Infectious Disease History Infectious Disease History: Reports: Chicken Pox, Measles, Mumps - Past Surgical History Head Surgeries/Procedures: Reports: None HEENT Surgical History: Reports: Cataract Surgery Cardiovascular Surgical History: Reports: Coronary Artery Stent Respiratory Surgical History: Reports: None GI Surgical History: Reports: Appendectomy, Cholecystectomy, Colonoscopy, EGD, Hernia, Inguinal Male Surgical History: Reports: Prostate Biopsy Endocrine Surgical History: Reports: None Neurological Surgical History: Reports: Lumbar Spine Musculoskeletal Surgical History: Reports: Carpal Tunnel, Hip Replacement, Shoulder Replacement, Other (See Below) Other Musculoskeletal Surgeries/Procedures:: back surgery Oncologic Surgical History: Reports: None Dermatological Surgical History: Reports: None Social & Family History - Family History Family Medical History: No Pertinent Family History - Tobacco Use Tobacco Use Status *Q: Never Tobacco User - Caffeine Use Caffeine Use: Reports: Coffee Caffeine Use Comment: decaf coffee - Recreational Drug Use Recreational Drug Use: No H&P Review of Systems - Review of Systems: Review Of Systems: See Below General: Reports: No Symptoms HEENT: Reports: No Symptoms Pulmonary: Reports: No Symptoms Cardiovascular: Reports: No Symptoms Gastrointestinal: Reports: No Symptoms Genitourinary: Reports: No Symptoms Musculoskeletal: Reports: No Symptoms Skin: Reports: Erythema (Erythema and tenderness anterior aspect left lower leg) Psychiatric: Reports: No Symptoms Neurological: Reports: No Symptoms Hematologic/Lymphatic: Reports: No Symptoms Immunologic: Reports: No Symptoms Exam - Exam Exam: See Below - Vital Signs Vital Signs: Last Vital Signs Temp 97.6 F 04/26/21 12:05 Pulse 77 04/26/21 12:05 Resp 18 04/26/21 12:05 BP 152/69 H 04/26/21 12:05 Pulse Ox 97 04/26/21 12:05 Weight: 196 lb - Exam Quality Assessment: DVT Prophylaxis General: Alert, Oriented, Cooperative, Mild Distress HEENT: Conjunctiva Clear, Hearing Intact, Mucosa Moist & Uriah, Normal Nasal Septum, Posterior Pharynx Clear, Pupils Equal Neck: Supple, Trachea Midline, +2 Carotid Pulse wo Bruit Lungs: Clear to Auscultation, Normal Respiratory Effort Cardiovascular: Regular Rate, Normal S1, Normal S2, Irregular Rhythm. No: Systolic Murmur, Diastolic Murmur GI/Abdominal Exam: Soft, Non-Tender, No Organomegaly, No Distention Back Exam: Normal Inspection, Full Range of Motion Extremities: Pedal Edema, Redness Neurological: Cranial Nerves Intact, Strength Equal Bilateral, Normal Speech, Normal Tone. No: Sensation Intact (Peripheral neuropathy), Focal Deficit Neuro Extensive - Mental Status: Alert, Oriented x3, Normal Mood/Affect, Normal Cognition, Memory Intact - Patient Data Lab Results Last 24 hrs: Laboratory Results - last 24 hr 04/26/21 04/26/21 04/26/21 Range/Units 12:00 13:34 13:34 WBC (4.5-11.0) K/uL RBC (4.30-5.90) M/uL Hgb (12.0-15.0) g/dL Hct (40.0-54.0) % MCV (80-98) fL MCH (27-31) pg MCHC (32-36) % Plt Count (150-400) K/uL Neut % (Auto) (36-66) % Lymph % (Auto) (24-44) % Blair % (Auto) (2-6) % Eos % (Auto) (2-4) % Baso % (Auto) (0-1) % Sodium 137 L (140-148) mmol/L Potassium 4.5 (3.6-5.2) mmol/L Chloride 102 (100-108) mmol/L Carbon Dioxide 28 (21-32) mmol/L Anion Gap 11.5 (5.0-14.0) mmol/L BUN 20 H (7-18) mg/dL Creatinine 1.3 (0.8-1.3) mg/dL Est Cr Clr Drug Dosing 46.95 mL/min Estimated GFR (MDRD) 52 L (>60) Glucose 101 (74-106) mg/dL Calcium 9.0 (8.5-10.1) mg/dL Total Bilirubin 0.6 (0.2-1.0) mg/dL AST 26 (15-37) U/L ALT 33 (12-78) U/L Alkaline Phosphatase 156 H D (46-116) U/L C-Reactive Protein 1.08 H (0.0-0.3) mg/dL Total Protein 7.6 (6.4-8.2) g/dL Albumin 2.7 L (3.4-5.0) g/dL Globulin 4.9 H (2.3-3.5) g/dL Albumin/Globulin Ratio 0.6 L (1.2-2.2) Urine Color (YELLOW) Urine Appearance (CLEAR) Urine pH (5.0-8.0) Ur Specific [place] (1.008-1.030) Urine Protein (NEGATIVE) mg/dL Urine Glucose (UA) (NEGATIVE) mg/dL Urine Ketones (NEGATIVE) mg/dL Urine Occult Blood (NEGATIVE) Urine Nitrite (NEGATIVE) Urine Bilirubin (NEGATIVE) Urine Urobilinogen (0.2-1.0) EU/dL Ur Leukocyte Esterase (NEGATIVE) Urine RBC (0-5) Urine WBC (0-5) Ur Epithelial Cells Amorphous Sediment Urine Bacteria Urine Mucus Influenza Type A RNA Negative (NEGATIVE) RSV RNA (INAAT) Negative (NEGATIVE) Influenza Type B RNA Negative (NEGATIVE) SARS-CoV-2 RNA (IZABEL) Negative (NEGATIVE) 04/26/21 04/26/21 Range/Units 13:34 15:41 WBC 7.7 (4.5-11.0) K/uL RBC 4.25 L (4.30-5.90) M/uL Hgb 11.3 L D (12.0-15.0) g/dL Hct 36.6 L (40.0-54.0) % MCV 86 (80-98) fL MCH 27 (27-31) pg MCHC 31 L (32-36) % Plt Count 219 (150-400) K/uL Neut % (Auto) 72.7 H (36-66) % Lymph % (Auto) 16.6 L (24-44) % Blair % (Auto) 9.2 H (2-6) % Eos % (Auto) 1.2 L (2-4) % Baso % (Auto) 0.3 (0-1) % Sodium (140-148) mmol/L Potassium (3.6-5.2) mmol/L Chloride (100-108) mmol/L Carbon Dioxide (21-32) mmol/L Anion Gap (5.0-14.0) mmol/L BUN (7-18) mg/dL Creatinine (0.8-1.3) mg/dL Est Cr Clr Drug Dosing mL/min Estimated GFR (MDRD) (>60) Glucose (74-106) mg/dL Calcium (8.5-10.1) mg/dL Total Bilirubin (0.2-1.0) mg/dL AST (15-37) U/L ALT (12-78) U/L Alkaline Phosphatase (46-116) U/L C-Reactive Protein (0.0-0.3) mg/dL Total Protein (6.4-8.2) g/dL Albumin (3.4-5.0) g/dL Globulin (2.3-3.5) g/dL Albumin/Globulin Ratio (1.2-2.2) Urine Color Yellow (YELLOW) Urine Appearance Slightly cloudy A (CLEAR) Urine pH 5.5 (5.0-8.0) Ur Specific [place] 1.015 (1.008-1.030) Urine Protein Negative (NEGATIVE) mg/dL Urine Glucose (UA) Negative (NEGATIVE) mg/dL Urine Ketones Negative (NEGATIVE) mg/dL Urine Occult Blood Trace-intact H (NEGATIVE) Urine Nitrite Positive H (NEGATIVE) Urine Bilirubin Negative (NEGATIVE) Urine Urobilinogen 0.2 (0.2-1.0) EU/dL Ur Leukocyte Esterase Small H (NEGATIVE) Urine RBC 5-10 H (0-5) Urine WBC 75-100 H (0-5) Ur Epithelial Cells Few Amorphous Sediment Not seen Urine Bacteria Many Urine Mucus Few Influenza Type A RNA (NEGATIVE) RSV RNA (INAAT) (NEGATIVE) Influenza Type B RNA (NEGATIVE) SARS-CoV-2 RNA (IZABEL) (NEGATIVE) Result Diagrams: 04/26/21 13:34 04/26/21 13:34 Sepsis Event Note - Evaluation Sepsis Screening Result: No Definite Risk - Focused Exam Vital Signs: Vital Signs Temp Pulse Resp BP Pulse Ox 04/26/21 12:05 97.6 F 77 18 152/69 H 97 *Q Meaningful Use (ADM) - VTE Risk Assess *Q Each Risk Factor Represents 1 Point: Obesity ( BMI > 25 kg/m2) Total Score 1 Point Risk Factors: 1 Each Risk Factor Represents 2 Points: None Total Score 2 Point Risk Factors: 0 Each Risk Factor Represents 3 Points: Age 75 Years or Greater Total Score 3 Point Risk Factors: 3 Each Risk Factor Represents 5 Points: None Total Score 5 Point Risk Factors: 0 Venous Thromboembolism Risk Factor Score *Q: 4 Problem List Initiated/Reviewed/Updated: Yes Orders Last 24hrs: Active Orders 24 hr Category Date Time Status Patient Status Manage Transfer [TRANSFER] Routine ADT 04/26/21 19:28 Active CULTURE URINE [RM] Stat Lab 04/26/21 16:24 Received Isolation [COMM] Stat Oth 04/26/21 18:34 Ordered Resuscitation Status Routine Resus Stat 04/26/21 19:33 Ordered Assessment/Plan Comment:: ASSESSMENT AND PLAN URINARY TRACT INFECTION-urinalysis shows findings consistent with infection, he does not have much in the way of symptoms -Urine culture pending -Zosyn 3.375 mg IV every 6 hours, he has allergies to multiple other antibiotics including cephalosporins and fluoroquinolones SWELLING AND ERYTHEMA LEFT LOWER LEG-venous stasis with increased edema versus cellulitis. White blood cell count is within normal range. -Venous Doppler study of the left leg in a.m. -Bumex 2 mg IV every 12 hours -Keep leg elevated -Zosyn as above TYPE 2 DIABETES MELLITUS -Continue usual dose of long-acting insulin -4 times daily glucometers -Low-dose sliding scale Humalog CHRONIC ANTICOAGULATION WITH WARFARIN -Warfarin 2.5 mg p.o. daily, will continue lower dose because of concurrent antibiotic therapy -Daily INR MAINTENANCE ISSUES -DVT prophylaxis; current therapy with warfarin should provide adequate DVT prophylaxis -GI prophylaxis; continue outpatient PPI therapy -Chacon catheter; not indicated -Nutrition; consistent carbohydrate diet -Nicotine dependence; not required CODE STATUS-FULL CODE ADMISSION STATUS-patient will be admitted to inpatient status, expect at least a 2 night hospital stay for evaluation and management of problems as outlined above. At the time of this admission I do not reasonably expected evaluation and management of this problem will require more than a 96 hour hospital stay. DISPOSITION-anticipate discharge to home after the hospital stay. PRIMARY CARE PROVIDER-Mary Lou - Mortality Measure Prognosis:: Good
[2021-04-26] MEDS ORDERED: 50% Dextrose in Water 50 ML Syringe IV PRN (20:01)
[2021-04-26] MEDS ORDERED: Ondansetron 4 MG/2 ML SDV IV PRN (20:01)
[2021-04-26] MEDS ORDERED: Polyethylene Glycol 3350 Powder 17 GM Packet PO PRN (20:01)
[2021-04-26] MEDS ORDERED: Glucose Gel 15 GM in 37.5 GM Tube PO PRN (20:01)
[2021-04-26] MEDS ORDERED: Acetaminophen 325 MG Tab PO PRN (20:01)
[2021-04-26] MEDS ORDERED: Sodium Chloride 0.9% 10 ML Syringe FLUSH PRN (20:01)
[2021-04-26] MEDS: Carvedilol 12.5 MG Tab PO SCH (21:18)
[2021-04-26] MEDS: Piperacillin/Tazobactam 3.375 GM in Sodium Chloride 0.9% 50 ML IV SCH (21:27)
[2021-04-26] MEDS: Insulin Lispro 100 Unit/ML 3 ML KwikPen SUBCUT SCH (21:30)
[2021-04-26] MEDS: Insulin Glargine,Human Rec. Analog 100 Units/ML 3 ML Pen SUBCUT SCH (21:31)
[2021-04-27] MEDS: Piperacillin/Tazobactam 3.375 GM in Sodium Chloride 0.9% 50 ML IV SCH (03:44)
[2021-04-27] MEDS: Insulin Lispro 100 Unit/ML 3 ML KwikPen SUBCUT SCH ×4 (08:04→22:08)
[2021-04-27] MEDS: Bumetanide 2.5 MG/10 ML MDV IVPUSH SCH ×2 (08:18→19:25)
[2021-04-27] MEDS: Carvedilol 12.5 MG Tab PO SCH ×2 (08:19→22:08)
[2021-04-27] MEDS: Potassium Chloride 20 MEQ Tab.ER PO SCH ×2 (08:19→16:27)
[2021-04-27] MEDS: Aspirin 81 MG Tab.EC PO SCH (08:19)
[2021-04-27] MEDS: Colchicine 0.6 MG Tab PO SCH (08:19)
[2021-04-27] MEDS: Pantoprazole 40 MG Tab.CR PO SCH (08:19)
--- NOTE | 2021-04-27 10:28 | US ---
VL Duplex Lwr Ext Veins Ltd Lt INDICATION: Increased swelling left leg FINDINGS: Ultrasound examination of the lower extremity using Doppler and compressive technique demonstrates that the common femoral, femoral, and popliteal veins are patent, and negative for thrombus. The calf veins were segmentally visualized and are negative where seen. IMPRESSION: Negative for deep venous thrombosis.
[2021-04-27] MEDS: Piperacillin/Tazobactam/Dext 3.375 GM in Premix Bag 1 BAG IV SCH ×3 (10:44→22:09)
[2021-04-27] MEDS: Warfarin 2.5 MG Tab PO SCH (13:05)
--- NOTE | 2021-04-27 14:46 | PCM.PN ---
- General Info Date of Service: 04/27/21 Subjective Update: Mr. Mahoney feels improved since admission with less pain and swelling in his left leg. Currently denies any urinary symptoms. Functional Status: Reports: Tolerating Diet, Ambulating, Urinating - Review of Systems General: Reports: Weakness, Fatigue. Denies: Fever, Chills Pulmonary: Reports: No Symptoms Cardiovascular: Reports: No Symptoms Gastrointestinal: Reports: No Symptoms Musculoskeletal: Reports: Leg Pain - Patient Data Vitals - Most Recent: Last Vital Signs Temp 96.2 F L 04/27/21 10:21 Pulse 73 04/27/21 10:21 Resp 18 04/27/21 10:21 BP 111/61 04/27/21 10:21 Pulse Ox 99 04/27/21 10:21 Weight - Most Recent: 187 lb 13.341 oz I&O - Last 24 Hours: Intake & Output 04/26/21 04/27/21 04/27/21 22:59 06:59 14:59 Intake Total 940 Output Total 300 Balance -300 940 Lab Results Last 24 Hours: Laboratory Results - last 24 hr 04/26/21 04/26/21 04/26/21 Range/Units 12:00 15:41 21:02 WBC (4.5-11.0) K/uL RBC (4.30-5.90) M/uL Hgb (12.0-15.0) g/dL Hct (40.0-54.0) % MCV (80-98) fL MCH (27-31) pg MCHC (32-36) % Plt Count (150-400) K/uL Neut % (Auto) (36-66) % Lymph % (Auto) (24-44) % [place] % (Auto) (2-6) % Eos % (Auto) (2-4) % Baso % (Auto) (0-1) % PT (9.2-10.6) sec INR Sodium (140-148) mmol/L Potassium (3.6-5.2) mmol/L Chloride (100-108) mmol/L Carbon Dioxide (21-32) mmol/L Anion Gap (5.0-14.0) mmol/L BUN (7-18) mg/dL Creatinine (0.8-1.3) mg/dL Est Cr Clr Drug Dosing mL/min Estimated GFR (MDRD) (>60) Glucose (74-106) mg/dL POC Glucose 137 H (74-106) mg/dL Calcium (8.5-10.1) mg/dL Magnesium (1.8-2.4) mg/dL Urine Color Yellow (YELLOW) Urine Appearance Slightly cloudy A (CLEAR) Urine pH 5.5 (5.0-8.0) Ur Specific [place] 1.015 (1.008-1.030) Urine Protein Negative (NEGATIVE) mg/dL Urine Glucose (UA) Negative (NEGATIVE) mg/dL Urine Ketones Negative (NEGATIVE) mg/dL Urine Occult Blood Trace-intact H (NEGATIVE) Urine Nitrite Positive H (NEGATIVE) Urine Bilirubin Negative (NEGATIVE) Urine Urobilinogen 0.2 (0.2-1.0) EU/dL Ur Leukocyte Esterase Small H (NEGATIVE) Urine RBC 5-10 H (0-5) Urine WBC 75-100 H (0-5) Ur Epithelial Cells Few Amorphous Sediment Not seen Urine Bacteria Many Urine Mucus Few Influenza Type A RNA Negative (NEGATIVE) RSV RNA (INAAT) Negative (NEGATIVE) Influenza Type B RNA Negative (NEGATIVE) SARS-CoV-2 RNA (IZABEL) Negative (NEGATIVE) 04/27/21 04/27/21 04/27/21 Range/Units 05:10 05:10 05:10 WBC 4.4 L (4.5-11.0) K/uL RBC 3.81 L (4.30-5.90) M/uL Hgb 10.1 L (12.0-15.0) g/dL Hct 32.9 L (40.0-54.0) % MCV 86 (80-98) fL MCH 27 (27-31) pg MCHC 31 L (32-36) % Plt Count 172 (150-400) K/uL Neut % (Auto) 64.4 (36-66) % Lymph % (Auto) 19.4 L (24-44) % [place] % (Auto) 10.0 H (2-6) % Eos % (Auto) 5.7 H (2-4) % Baso % (Auto) 0.5 (0-1) % PT 30.9 H (9.2-10.6) sec INR 3.1 Sodium 140 (140-148) mmol/L Potassium 4.3 (3.6-5.2) mmol/L Chloride 106 (100-108) mmol/L Carbon Dioxide 27 (21-32) mmol/L Anion Gap 7.3 (5.0-14.0) mmol/L BUN 26 H (7-18) mg/dL Creatinine 1.4 H (0.8-1.3) mg/dL Est Cr Clr Drug Dosing 43.60 mL/min Estimated GFR (MDRD) 48 L (>60) Glucose 90 (74-106) mg/dL POC Glucose (74-106) mg/dL Calcium 8.5 (8.5-10.1) mg/dL Magnesium 2.0 (1.8-2.4) mg/dL Urine Color (YELLOW) Urine Appearance (CLEAR) Urine pH (5.0-8.0) Ur Specific [place] (1.008-1.030) Urine Protein (NEGATIVE) mg/dL Urine Glucose (UA) (NEGATIVE) mg/dL Urine Ketones (NEGATIVE) mg/dL Urine Occult Blood (NEGATIVE) Urine Nitrite (NEGATIVE) Urine Bilirubin (NEGATIVE) Urine Urobilinogen (0.2-1.0) EU/dL Ur Leukocyte Esterase (NEGATIVE) Urine RBC (0-5) Urine WBC (0-5) Ur Epithelial Cells Amorphous Sediment Urine Bacteria Urine Mucus Influenza Type A RNA (NEGATIVE) RSV RNA (INAAT) (NEGATIVE) Influenza Type B RNA (NEGATIVE) SARS-CoV-2 RNA (IZABEL) (NEGATIVE) 04/27/21 04/27/21 Range/Units 07:34 11:47 WBC (4.5-11.0) K/uL RBC (4.30-5.90) M/uL Hgb (12.0-15.0) g/dL Hct (40.0-54.0) % MCV (80-98) fL MCH (27-31) pg MCHC (32-36) % Plt Count (150-400) K/uL Neut % (Auto) (36-66) % Lymph % (Auto) (24-44) % [place] % (Auto) (2-6) % Eos % (Auto) (2-4) % Baso % (Auto) (0-1) % PT (9.2-10.6) sec INR Sodium (140-148) mmol/L Potassium (3.6-5.2) mmol/L Chloride (100-108) mmol/L Carbon Dioxide (21-32) mmol/L Anion Gap (5.0-14.0) mmol/L BUN (7-18) mg/dL Creatinine (0.8-1.3) mg/dL Est Cr Clr Drug Dosing mL/min Estimated GFR (MDRD) (>60) Glucose (74-106) mg/dL POC Glucose 81 130 H (74-106) mg/dL Calcium (8.5-10.1) mg/dL Magnesium (1.8-2.4) mg/dL Urine Color (YELLOW) Urine Appearance (CLEAR) Urine pH (5.0-8.0) Ur Specific [place] (1.008-1.030) Urine Protein (NEGATIVE) mg/dL Urine Glucose (UA) (NEGATIVE) mg/dL Urine Ketones (NEGATIVE) mg/dL Urine Occult Blood (NEGATIVE) Urine Nitrite (NEGATIVE) Urine Bilirubin (NEGATIVE) Urine Urobilinogen (0.2-1.0) EU/dL Ur Leukocyte Esterase (NEGATIVE) Urine RBC (0-5) Urine WBC (0-5) Ur Epithelial Cells Amorphous Sediment Urine Bacteria Urine Mucus Influenza Type A RNA (NEGATIVE) RSV RNA (INAAT) (NEGATIVE) Influenza Type B RNA (NEGATIVE) SARS-CoV-2 RNA (IZABEL) (NEGATIVE) Ken Results Last 24 Hours: Microbiology 04/26/21 16:24 Urine Culture - Preliminary Urine, Bladder Med Orders - Current: Current Medications Acetaminophen (Acetaminophen 325 Mg Tab) 650 mg PO Q4H PRN PRN Reason: Pain (Mild 1-3)/fever Ammonium Lactate (Ammonium Lactate 12% Lotion 225 Gm Bottle) 0 gm TOP BID [facility] Aspirin (Aspirin 81 Mg Tab.Ec) 81 mg PO DAILY [facility] Last Admin: 04/27/21 08:19 Dose: 81 mg Documented by: Bumetanide (Bumetanide 2.5 Mg/10 Ml Mdv) 2 mg IVPUSH Q12H [facility] Last Admin: 04/27/21 08:18 Dose: 2 mg Documented by: Carvedilol (Carvedilol 12.5 Mg Tab) 12.5 mg PO BID [facility] Last Admin: 04/27/21 08:19 Dose: 12.5 mg Documented by: Colchicine (Colchicine 0.6 Mg Tab) 0.6 mg PO DAILY [facility] Last Admin: 04/27/21 08:19 Dose: 0.6 mg Documented by: Dextrose (Glucose Gel 15 Gm In 37.5 Gm Tube) 15 gm PO ONETIME PRN PRN Reason: Hypoglycemia Dextrose/Water (50% Dextrose In Water 50 Ml Syringe) 50 ml IV ONETIME PRN PRN Reason: Hypoglycemia Piperacillin/Tazobactam/ (Dextrose 3.375 gm/ Premix) 50 mls @ 100 mls/hr IV Q6H [facility] Last Admin: 04/27/21 10:44 Dose: 100 mls/hr Documented by: Insulin Glargine (Insulin Glargine,Human Rec. Analog 100 Units/Ml 3 Ml Pen) 5 units SUBCUT BEDTIME [facility] Last Admin: 04/26/21 21:31 Dose: 5 unit Documented by: Insulin Human Lispro (Insulin Lispro 100 Unit/Ml 3 Ml Kwikpen) 0 unit SUBCUT QIDACANDBED [facility]; Protocol Last Admin: 04/27/21 11:50 Dose: Not Given Documented by: Ondansetron HCl (Ondansetron 4 Mg/2 Ml Sdv) 4 mg IV Q4H PRN PRN Reason: Nausea/Vomiting Pantoprazole Sodium (Pantoprazole 40 Mg Tab.Cr) 40 mg PO ACBREAKFAST [facility] Last Admin: 04/27/21 08:19 Dose: 40 mg Documented by: Polyethylene Glycol (Polyethylene Glycol 3350 Powder 17 Gm Packet) 17 gm PO DAILY PRN PRN Reason: Constipation Potassium Chloride (Potassium Chloride 20 Meq Tab.Er) 40 meq PO QAM [facility] Last Admin: 04/27/21 08:19 Dose: 40 meq Documented by: Potassium Chloride (Potassium Chloride 20 Meq Tab.Er) 20 meq PO QPM [facility] Sodium Chloride (Sodium Chloride 0.9% 10 Ml Syringe) 10 ml FLUSH ASDIRECTED PRN PRN Reason: Keep Vein Open Warfarin Sodium (Warfarin 2.5 Mg Tab) 2.5 mg PO DAILY@1300 [facility] Last Admin: 04/27/21 13:05 Dose: 2.5 mg Documented by: Discontinued Medications Piperacillin/Tazobactam/ (Dextrose 3.375 gm/ Premix) 50 mls @ 100 mls/hr IV ONETIME ONE Stop: 04/26/21 16:14 Last Admin: 04/26/21 16:11 Dose: 100 mls/hr Documented by: Piperacillin Sod/Tazobactam (Sod 3.375 gm/ Sodium Chloride) 50 mls @ 100 mls/hr IV Q6H [facility] Last Admin: 04/27/21 03:44 Dose: 100 mls/hr Documented by: Influenza Virus Vaccine (Flu Vacc [id number](65yr Up)/Pf 240 Mcg/0.7 Ml Syringe) 240 mcg IM .ONCE ONE Stop: 04/27/21 10:01 Last Admin: 04/27/21 10:43 Dose: 240 mcg Documented by: - Exam Quality Assessment: DVT Prophylaxis General: Alert, Oriented, Cooperative, Mild Distress Lungs: Clear to Auscultation, Normal Respiratory Effort Cardiovascular: Regular Rate, Regular Rhythm, No Murmurs GI/Abdominal Exam: Soft, Non-Tender, No Organomegaly, No Distention Extremities: Non-Tender, Pedal Edema, Redness - Patient Data Lab Results Last 24 hrs: Laboratory Results - last 24 hr 04/26/21 04/26/21 04/26/21 Range/Units 12:00 15:41 21:02 WBC (4.5-11.0) K/uL RBC (4.30-5.90) M/uL Hgb (12.0-15.0) g/dL Hct (40.0-54.0) % MCV (80-98) fL MCH (27-31) pg MCHC (32-36) % Plt Count (150-400) K/uL Neut % (Auto) (36-66) % Lymph % (Auto) (24-44) % [place] % (Auto) (2-6) % Eos % (Auto) (2-4) % Baso % (Auto) (0-1) % PT (9.2-10.6) sec INR Sodium (140-148) mmol/L Potassium (3.6-5.2) mmol/L Chloride (100-108) mmol/L Carbon Dioxide (21-32) mmol/L Anion Gap (5.0-14.0) mmol/L BUN (7-18) mg/dL Creatinine (0.8-1.3) mg/dL Est Cr Clr Drug Dosing mL/min Estimated GFR (MDRD) (>60) Glucose (74-106) mg/dL POC Glucose 137 H (74-106) mg/dL Calcium (8.5-10.1) mg/dL Magnesium (1.8-2.4) mg/dL Urine Color Yellow (YELLOW) Urine Appearance Slightly cloudy A (CLEAR) Urine pH 5.5 (5.0-8.0) Ur Specific [place] 1.015 (1.008-1.030) Urine Protein Negative (NEGATIVE) mg/dL Urine Glucose (UA) Negative (NEGATIVE) mg/dL Urine Ketones Negative (NEGATIVE) mg/dL Urine Occult Blood Trace-intact H (NEGATIVE) Urine Nitrite Positive H (NEGATIVE) Urine Bilirubin Negative (NEGATIVE) Urine Urobilinogen 0.2 (0.2-1.0) EU/dL Ur Leukocyte Esterase Small H (NEGATIVE) Urine RBC 5-10 H (0-5) Urine WBC 75-100 H (0-5) Ur Epithelial Cells Few Amorphous Sediment Not seen Urine Bacteria Many Urine Mucus Few Influenza Type A RNA Negative (NEGATIVE) RSV RNA (INAAT) Negative (NEGATIVE) Influenza Type B RNA Negative (NEGATIVE) SARS-CoV-2 RNA (IZABEL) Negative (NEGATIVE) 04/27/21 04/27/21 04/27/21 Range/Units 05:10 05:10 05:10 WBC 4.4 L (4.5-11.0) K/uL RBC 3.81 L (4.30-5.90) M/uL Hgb 10.1 L (12.0-15.0) g/dL Hct 32.9 L (40.0-54.0) % MCV 86 (80-98) fL MCH 27 (27-31) pg MCHC 31 L (32-36) % Plt Count 172 (150-400) K/uL Neut % (Auto) 64.4 (36-66) % Lymph % (Auto) 19.4 L (24-44) % [place] % (Auto) 10.0 H (2-6) % Eos % (Auto) 5.7 H (2-4) % Baso % (Auto) 0.5 (0-1) % PT 30.9 H (9.2-10.6) sec INR 3.1 Sodium 140 (140-148) mmol/L Potassium 4.3 (3.6-5.2) mmol/L Chloride 106 (100-108) mmol/L Carbon Dioxide 27 (21-32) mmol/L Anion Gap 7.3 (5.0-14.0) mmol/L BUN 26 H (7-18) mg/dL Creatinine 1.4 H (0.8-1.3) mg/dL Est Cr Clr Drug Dosing 43.60 mL/min Estimated GFR (MDRD) 48 L (>60) Glucose 90 (74-106) mg/dL POC Glucose (74-106) mg/dL Calcium 8.5 (8.5-10.1) mg/dL Magnesium 2.0 (1.8-2.4) mg/dL Urine Color (YELLOW) Urine Appearance (CLEAR) Urine pH (5.0-8.0) Ur Specific [place] (1.008-1.030) Urine Protein (NEGATIVE) mg/dL Urine Glucose (UA) (NEGATIVE) mg/dL Urine Ketones (NEGATIVE) mg/dL Urine Occult Blood (NEGATIVE) Urine Nitrite (NEGATIVE) Urine Bilirubin (NEGATIVE) Urine Urobilinogen (0.2-1.0) EU/dL Ur Leukocyte Esterase (NEGATIVE) Urine RBC (0-5) Urine WBC (0-5) Ur Epithelial Cells Amorphous Sediment Urine Bacteria Urine Mucus Influenza Type A RNA (NEGATIVE) RSV RNA (INAAT) (NEGATIVE) Influenza Type B RNA (NEGATIVE) SARS-CoV-2 RNA (IZABEL) (NEGATIVE) 04/27/21 04/27/21 Range/Units 07:34 11:47 WBC (4.5-11.0) K/uL RBC (4.30-5.90) M/uL Hgb (12.0-15.0) g/dL Hct (40.0-54.0) % MCV (80-98) fL MCH (27-31) pg MCHC (32-36) % Plt Count (150-400) K/uL Neut % (Auto) (36-66) % Lymph % (Auto) (24-44) % [place] % (Auto) (2-6) % Eos % (Auto) (2-4) % Baso % (Auto) (0-1) % PT (9.2-10.6) sec INR Sodium (140-148) mmol/L Potassium (3.6-5.2) mmol/L Chloride (100-108) mmol/L Carbon Dioxide (21-32) mmol/L Anion Gap (5.0-14.0) mmol/L BUN (7-18) mg/dL Creatinine (0.8-1.3) mg/dL Est Cr Clr Drug Dosing mL/min Estimated GFR (MDRD) (>60) Glucose (74-106) mg/dL POC Glucose 81 130 H (74-106) mg/dL Calcium (8.5-10.1) mg/dL Magnesium (1.8-2.4) mg/dL Urine Color (YELLOW) Urine Appearance (CLEAR) Urine pH (5.0-8.0) Ur Specific [place] (1.008-1.030) Urine Protein (NEGATIVE) mg/dL Urine Glucose (UA) (NEGATIVE) mg/dL Urine Ketones (NEGATIVE) mg/dL Urine Occult Blood (NEGATIVE) Urine Nitrite (NEGATIVE) Urine Bilirubin (NEGATIVE) Urine Urobilinogen (0.2-1.0) EU/dL Ur Leukocyte Esterase (NEGATIVE) Urine RBC (0-5) Urine WBC (0-5) Ur Epithelial Cells Amorphous Sediment Urine Bacteria Urine Mucus Influenza Type A RNA (NEGATIVE) RSV RNA (INAAT) (NEGATIVE) Influenza Type B RNA (NEGATIVE) SARS-CoV-2 RNA (IZABEL) (NEGATIVE) Result Diagrams: 04/27/21 05:10 04/27/21 05:10 Ken Results Last 24 hrs: Microbiology 04/26/21 16:24 Urine Culture - Preliminary Urine, Bladder Sepsis Event Note - Evaluation Sepsis Screening Result: No Definite Risk - Focused Exam Vital Signs: Vital Signs Temp Pulse Pulse Resp BP BP Pulse Ox 04/27/21 10:21 96.2 F L 73 18 111/61 99 04/27/21 08:19 67 119/46 L 04/27/21 07:53 95.9 F L 67 18 119/46 L 97 04/27/21 03:00 97.4 F 72 16 128/57 L 98 - Problem List Review Problem List Initiated/Reviewed/Updated: Yes - My Orders Last 24 Hours: My Active Orders 04/26/21 Dinner Consistent Carbohydrate Diet [DIET] 04/26/21 19:33 Resuscitation Status Routine 04/26/21 20:01 Acetaminophen [TylenoL] 650 mg PO Q4H PRN Dextrose 50% in Water 50 ml IV ONETIME PRN Dextrose [Glutose 15] 15 gm PO ONETIME PRN Insulin Lispro [HumaLOG] See Protocol SUBCUT QIDACANDBED Ondansetron [Zofran] 4 mg IV Q4H PRN Sodium Chloride 0.9% [Saline Flush] 10 ml FLUSH ASDIRECTED PRN polyethylene glycoL 3350 [MiraLAX] 17 gm PO DAILY PRN 04/26/21 20:01 Patient Status [ADT] Routine Ambulate [RC] QID Communication Order [RC] STAT Diabetes Education [RC] Click to Edit Height and Weight [RC] DAILY Intake and Output [RC] QSHIFT Notify Provider Vital Signs [RC] ASDIRECTED Notify Provider [RC] PRN Oxygen Therapy [RC] PRN Up With Assistance [RC] ASDIRECTED Up to Chair [RC] QID Vital Signs [RC] Q4H Saline Lock Insert [OM.PC] Routine VTE Pharmacological Contraindications [AST] Per Unit Routine 04/26/21 20:07 Vaccine to be Administered/Admin Charge [RC] 1000 04/26/21 21:00 Insulin Glarg,Human.Rec.Analog [LantUS Solostar] 5 units SUBCUT BEDTIME carvediloL [Coreg] 12.5 mg PO BID 04/27/21 07:00 Bumetanide [Bumex] 2 mg IVPUSH Q12H 04/27/21 07:30 Pantoprazole [ProTONIX] 40 mg PO ACBREAKFAST 04/27/21 09:00 Aspirin [Halfprin] 81 mg PO DAILY Colchicine [Colcrys] 0.6 mg PO DAILY Potassium Chloride [Klor-Con M20] 40 meq PO QAM 04/27/21 10:00 Piperacillin/Tazobactam/Dext [Zosyn in Dextrose Iso-Osmotic 3.375 GM/50 ML] 3.375 gm Premix Bag 1 bag IV Q6H 04/27/21 13:00 Warfarin [Coumadin] 2.5 mg PO DAILY@1300 04/27/21 16:30 GLUCOSE POC LAB TO COLLECT JPM [POC] QIDACANDBED 04/27/21 17:00 Potassium Chloride [Klor-Con M20] 20 meq PO QPM 04/27/21 21:00 GLUCOSE POC LAB TO COLLECT JPM [POC] QIDACANDBED 04/28/21 05:00 BASIC METABOLIC PANEL,BMP [CHEM] Timed 04/28/21 05:11 INR,PT,PROTHROMBIN TIME [COAG] AM 04/28/21 07:30 GLUCOSE POC LAB TO COLLECT JPM [POC] QIDACANDBED 04/28/21 09:00 Ammonium Lactate [Amlactin 12% Lotion] 0 gm TOP BID 04/28/21 11:30 GLUCOSE POC LAB TO COLLECT JPM [POC] QIDACANDBED 04/28/21 16:30 GLUCOSE POC LAB TO COLLECT JPM [POC] QIDACANDBED 04/28/21 21:00 GLUCOSE POC LAB TO COLLECT JPM [POC] QIDACANDBED 04/29/21 05:11 INR,PT,PROTHROMBIN TIME [COAG] AM 04/29/21 07:30 GLUCOSE POC LAB TO COLLECT JPM [POC] QIDACANDBED 04/29/21 11:30 GLUCOSE POC LAB TO COLLECT JPM [POC] QIDACANDBED 04/29/21 16:30 GLUCOSE POC LAB TO COLLECT JPM [POC] QIDACANDBED 04/29/21 21:00 GLUCOSE POC LAB TO COLLECT JPM [POC] QIDACANDBED 04/30/21 05:11 INR,PT,PROTHROMBIN TIME [COAG] AM 04/30/21 07:30 GLUCOSE POC LAB TO COLLECT JPM [POC] QIDACANDBED 04/30/21 11:30 GLUCOSE POC LAB TO COLLECT JPM [POC] QIDACANDBED 04/30/21 16:30 GLUCOSE POC LAB TO COLLECT JPM [POC] QIDACANDBED 04/30/21 21:00 GLUCOSE POC LAB TO COLLECT JPM [POC] QIDACANDBED 05/01/21 05:11 INR,PT,PROTHROMBIN TIME [COAG] AM 05/01/21 07:30 GLUCOSE POC LAB TO COLLECT JPM [POC] QIDACANDBED 05/01/21 11:30 GLUCOSE POC LAB TO COLLECT JPM [POC] QIDACANDBED 05/01/21 16:30 GLUCOSE POC LAB TO COLLECT JPM [POC] QIDACANDBED - Plan Plan:: ASSESSMENT AND PLAN URINARY TRACT INFECTION-urinalysis shows findings consistent with infection, he does not have much in the way of symptoms -Urine culture pending -Zosyn 3.375 mg IV every 6 hours, he has allergies to multiple other antibiotics including cephalosporins and fluoroquinolones SWELLING AND ERYTHEMA LEFT LOWER LEG-venous stasis with increased edema versus cellulitis. White blood cell count is within normal range. Venous Doppler study of the left leg showed no evidence of deep vein thrombosis -Bumex 2 mg IV every 12 hours -Keep leg elevated -Zosyn as above TYPE 2 DIABETES MELLITUS -Continue usual dose of long-acting insulin -4 times daily glucometers -Low-dose sliding scale Humalog CHRONIC ANTICOAGULATION WITH WARFARIN -Warfarin 2.5 mg p.o. daily, will continue lower dose because of concurrent antibiotic therapy -Daily INR MAINTENANCE ISSUES -DVT prophylaxis; current therapy with warfarin should provide adequate DVT prop hylaxis -GI prophylaxis; continue outpatient PPI therapy -Chacon catheter; not indicated -Nutrition; consistent carbohydrate diet -Nicotine dependence; not required CODE STATUS-FULL CODE ADMISSION STATUS-patient will be admitted to inpatient status, expect at least a 2 night hospital stay for evaluation and management of problems as outlined above. At the time of this admission I do not reasonably expected evaluation and management of this problem will require more than a 96 hour hospital stay. DISPOSITION-anticipate discharge to home after the hospital stay. PRIMARY CARE PROVIDER-Mary Lou
[2021-04-27] MEDS: Insulin Glargine,Human Rec. Analog 100 Units/ML 3 ML Pen SUBCUT SCH (22:07)
[2021-04-28] MEDS: Piperacillin/Tazobactam/Dext 3.375 GM in Premix Bag 1 BAG IV SCH ×4 (03:47→21:17)
[2021-04-28] MEDS: Pantoprazole 40 MG Tab.CR PO SCH (07:32)
[2021-04-28] MEDS: Insulin Lispro 100 Unit/ML 3 ML KwikPen SUBCUT SCH ×4 (07:33→20:49)
[2021-04-28] MEDS: Bumetanide 2.5 MG/10 ML MDV IVPUSH SCH (08:08)
[2021-04-28] MEDS: Colchicine 0.6 MG Tab PO SCH (08:10)
[2021-04-28] MEDS: Carvedilol 12.5 MG Tab PO SCH ×2 (08:10→21:10)
[2021-04-28] MEDS: Potassium Chloride 20 MEQ Tab.ER PO SCH ×2 (08:11→16:18)
[2021-04-28] MEDS: Aspirin 81 MG Tab.EC PO SCH (08:12)
[2021-04-28] MEDS: Warfarin 2.5 MG Tab PO SCH (13:08)
--- NOTE | 2021-04-28 14:42 | PCM.PN ---
- General Info Date of Service: 04/28/21 Subjective Update: Mr. Mahoney has been stable over the last 24 hours. Only mild evidence of residual cellulitis noted in the leg and peripheral edema has improved significantly. He otherwise reports that he is feeling well and denies other symptoms. Functional Status: Reports: Tolerating Diet, Urinating - Review of Systems General: Reports: Weakness, Fatigue. Denies: Fever, Chills Pulmonary: Reports: No Symptoms Cardiovascular: Reports: No Symptoms Gastrointestinal: Reports: No Symptoms Genitourinary: Reports: No Symptoms - Patient Data Vitals - Most Recent: Last Vital Signs Temp 97 F 04/28/21 11:00 Pulse 90 04/28/21 11:00 Resp 16 04/28/21 11:00 BP 133/58 L 04/28/21 11:00 Pulse Ox 98 04/28/21 11:00 Weight - Most Recent: 183 lb 3.266 oz I&O - Last 24 Hours: Intake & Output 04/27/21 04/28/21 04/28/21 22:59 06:59 14:59 Intake Total 290 290 650 Balance 290 290 650 Lab Results Last 24 Hours: Laboratory Results - last 24 hr 04/27/21 04/27/21 04/28/21 Range/Units 16:19 20:51 04:43 PT 21.9 H (9.2-10.6) sec INR 2.2 Sodium (140-148) mmol/L Potassium (3.6-5.2) mmol/L Chloride (100-108) mmol/L Carbon Dioxide (21-32) mmol/L Anion Gap (5.0-14.0) mmol/L BUN (7-18) mg/dL Creatinine (0.8-1.3) mg/dL Est Cr Clr Drug Dosing mL/min Estimated GFR (MDRD) (>60) Glucose (74-106) mg/dL POC Glucose 96 129 H (74-106) mg/dL Calcium (8.5-10.1) mg/dL 04/28/21 04/28/21 04/28/21 Range/Units 04:43 07:27 11:24 PT (9.2-10.6) sec INR Sodium 141 (140-148) mmol/L Potassium 4.0 (3.6-5.2) mmol/L Chloride 103 (100-108) mmol/L Carbon Dioxide 29 (21-32) mmol/L Anion Gap 9.5 (5.0-14.0) mmol/L BUN 28 H (7-18) mg/dL Creatinine 1.5 H (0.8-1.3) mg/dL Est Cr Clr Drug Dosing 40.69 mL/min Estimated GFR (MDRD) 44 L (>60) Glucose 117 H (74-106) mg/dL POC Glucose 118 H 114 H (74-106) mg/dL Calcium 8.6 (8.5-10.1) mg/dL Ken Results Last 24 Hours: Microbiology 04/26/21 16:24 Urine Culture - Final Urine, Bladder Citrobacter Koseri Med Orders - Current: Current Medications Acetaminophen (Acetaminophen 325 Mg Tab) 650 mg PO Q4H PRN PRN Reason: Pain (Mild 1-3)/fever Ammonium Lactate (Ammonium Lactate 12% Lotion 225 Gm Bottle) 0 gm TOP BID [facility] Last Admin: 04/28/21 08:09 Dose: Not Given Documented by: Aspirin (Aspirin 81 Mg Tab.Ec) 81 mg PO DAILY [facility] Last Admin: 04/28/21 08:12 Dose: 81 mg Documented by: Bumetanide (Bumetanide 2.5 Mg/10 Ml Mdv) 2 mg IVPUSH Q24H [facility] Carvedilol (Carvedilol 12.5 Mg Tab) 12.5 mg PO BID [facility] Last Admin: 04/28/21 08:10 Dose: 12.5 mg Documented by: Colchicine (Colchicine 0.6 Mg Tab) 0.6 mg PO DAILY [facility] Last Admin: 04/28/21 08:10 Dose: 0.6 mg Documented by: Dextrose (Glucose Gel 15 Gm In 37.5 Gm Tube) 15 gm PO ONETIME PRN PRN Reason: Hypoglycemia Dextrose/Water (50% Dextrose In Water 50 Ml Syringe) 50 ml IV ONETIME PRN PRN Reason: Hypoglycemia Piperacillin/Tazobactam/ (Dextrose 3.375 gm/ Premix) 50 mls @ 100 mls/hr IV Q6H [facility] Last Admin: 04/28/21 10:30 Dose: 100 mls/hr Documented by: Insulin Glargine (Insulin Glargine,Human Rec. Analog 100 Units/Ml 3 Ml Pen) 5 units SUBCUT BEDTIME [facility] Last Admin: 04/27/21 22:07 Dose: 5 unit Documented by: Insulin Human Lispro (Insulin Lispro 100 Unit/Ml 3 Ml Kwikpen) 0 unit SUBCUT QIDACANDBED [facility]; Protocol Last Admin: 04/28/21 11:37 Dose: Not Given Documented by: Ondansetron HCl (Ondansetron 4 Mg/2 Ml Sdv) 4 mg IV Q4H PRN PRN Reason: Nausea/Vomiting Pantoprazole Sodium (Pantoprazole 40 Mg Tab.Cr) 40 mg PO ACBREAKFAST [facility] Last Admin: 04/28/21 07:32 Dose: 40 mg Documented by: Polyethylene Glycol (Polyethylene Glycol 3350 Powder 17 Gm Packet) 17 gm PO DAILY PRN PRN Reason: Constipation Potassium Chloride (Potassium Chloride 20 Meq Tab.Er) 40 meq PO QAM [facility] Last Admin: 04/28/21 08:11 Dose: 40 meq Documented by: Potassium Chloride (Potassium Chloride 20 Meq Tab.Er) 20 meq PO QPM [facility] Last Admin: 04/27/21 16:27 Dose: 20 meq Documented by: Sodium Chloride (Sodium Chloride 0.9% 10 Ml Syringe) 10 ml FLUSH ASDIRECTED PRN PRN Reason: Keep Vein Open Warfarin Sodium (Warfarin 2.5 Mg Tab) 2.5 mg PO DAILY@1300 [facility] Last Admin: 04/28/21 13:08 Dose: 2.5 mg Documented by: Discontinued Medications Bumetanide (Bumetanide 2.5 Mg/10 Ml Mdv) 2 mg IVPUSH Q12H [facility] Last Admin: 04/28/21 08:08 Dose: 2 mg Documented by: Piperacillin/Tazobactam/ (Dextrose 3.375 gm/ Premix) 50 mls @ 100 mls/hr IV ONETIME ONE Stop: 04/26/21 16:14 Last Admin: 04/26/21 16:11 Dose: 100 mls/hr Documented by: Piperacillin Sod/Tazobactam (Sod 3.375 gm/ Sodium Chloride) 50 mls @ 100 mls/hr IV Q6H [facility] Last Admin: 04/27/21 03:44 Dose: 100 mls/hr Documented by: Influenza Virus Vaccine (Flu Vacc [id number](65yr Up)/Pf 240 Mcg/0.7 Ml Syringe) 240 mcg IM .ONCE ONE Stop: 04/27/21 10:01 Last Admin: 04/27/21 10:43 Dose: 240 mcg Documented by: - Exam Quality Assessment: DVT Prophylaxis General: Alert, Oriented, Cooperative, Mild Distress Lungs: Clear to Auscultation, Normal Respiratory Effort Cardiovascular: Regular Rate, No Murmurs, Irregular Rhythm GI/Abdominal Exam: Soft, Non-Tender, No Organomegaly, No Distention Extremities: Non-Tender, Pedal Edema - Patient Data Lab Results Last 24 hrs: Laboratory Results - last 24 hr 04/27/21 04/27/21 04/28/21 Range/Units 16:19 20:51 04:43 PT 21.9 H (9.2-10.6) sec INR 2.2 Sodium (140-148) mmol/L Potassium (3.6-5.2) mmol/L Chloride (100-108) mmol/L Carbon Dioxide (21-32) mmol/L Anion Gap (5.0-14.0) mmol/L BUN (7-18) mg/dL Creatinine (0.8-1.3) mg/dL Est Cr Clr Drug Dosing mL/min Estimated GFR (MDRD) (>60) Glucose (74-106) mg/dL POC Glucose 96 129 H (74-106) mg/dL Calcium (8.5-10.1) mg/dL 04/28/21 04/28/21 04/28/21 Range/Units 04:43 07:27 11:24 PT (9.2-10.6) sec INR Sodium 141 (140-148) mmol/L Potassium 4.0 (3.6-5.2) mmol/L Chloride 103 (100-108) mmol/L Carbon Dioxide 29 (21-32) mmol/L Anion Gap 9.5 (5.0-14.0) mmol/L BUN 28 H (7-18) mg/dL Creatinine 1.5 H (0.8-1.3) mg/dL Est Cr Clr Drug Dosing 40.69 mL/min Estimated GFR (MDRD) 44 L (>60) Glucose 117 H (74-106) mg/dL POC Glucose 118 H 114 H (74-106) mg/dL Calcium 8.6 (8.5-10.1) mg/dL Result Diagrams: 04/27/21 05:10 04/28/21 04:43 Ken Results Last 24 hrs: Microbiology 04/26/21 16:24 Urine Culture - Final Urine, Bladder Citrobacter Koseri Sepsis Event Note - Evaluation Sepsis Screening Result: No Definite Risk - Focused Exam Vital Signs: Vital Signs Temp Pulse Pulse Resp BP BP Pulse Ox 04/28/21 11:00 97 F 90 16 133/58 L 98 04/28/21 08:10 77 144/66 H 04/28/21 07:31 96.3 F L 77 16 144/60 H 91 L 04/28/21 03:54 96.7 F L 68 16 109/58 L 95 - Problem List Review Problem List Initiated/Reviewed/Updated: Yes - My Orders Last 24 Hours: My Active Orders 04/27/21 17:00 Potassium Chloride [Klor-Con M20] 20 meq PO QPM 04/28/21 09:00 Ammonium Lactate [Amlactin 12% Lotion] 0 gm TOP BID 04/28/21 16:30 GLUCOSE POC LAB TO COLLECT JPM [POC] QIDACANDBED 04/28/21 21:00 GLUCOSE POC LAB TO COLLECT JPM [POC] QIDACANDBED 04/29/21 05:00 BASIC METABOLIC PANEL,BMP [CHEM] Timed 04/29/21 05:11 INR,PT,PROTHROMBIN TIME [COAG] AM 04/29/21 07:30 GLUCOSE POC LAB TO COLLECT JPM [POC] QIDACANDBED 04/29/21 08:00 Bumetanide [Bumex] 2 mg IVPUSH Q24H 04/29/21 11:30 GLUCOSE POC LAB TO COLLECT JPM [POC] QIDACANDBED 04/29/21 16:30 GLUCOSE POC LAB TO COLLECT JPM [POC] QIDACANDBED 04/29/21 21:00 GLUCOSE POC LAB TO COLLECT JPM [POC] QIDACANDBED 04/30/21 05:11 INR,PT,PROTHROMBIN TIME [COAG] AM 04/30/21 07:30 GLUCOSE POC LAB TO COLLECT JPM [POC] QIDACANDBED 04/30/21 11:30 GLUCOSE POC LAB TO COLLECT JPM [POC] QIDACANDBED 04/30/21 16:30 GLUCOSE POC LAB TO COLLECT JPM [POC] QIDACANDBED 04/30/21 21:00 GLUCOSE POC LAB TO COLLECT JPM [POC] QIDACANDBED 05/01/21 05:11 INR,PT,PROTHROMBIN TIME [COAG] AM 05/01/21 07:30 GLUCOSE POC LAB TO COLLECT JPM [POC] QIDACANDBED 05/01/21 11:30 GLUCOSE POC LAB TO COLLECT JPM [POC] QIDACANDBED 05/01/21 16:30 GLUCOSE POC LAB TO COLLECT JPM [POC] QIDACANDBED - Plan Plan:: ASSESSMENT AND PLAN URINARY TRACT INFECTION-urinalysis shows findings consistent with infection, he does not have much in the way of symptoms -Urine culture pending -Zosyn 3.375 mg IV every 6 hours, he has allergies to multiple other antibiotics including cephalosporins and fluoroquinolones CELLULITIS LEFT LOWER LEG-significantly improved from admission, only minimal evidence of infection -Bumex 2 mg IV every 24 hours -Keep leg elevated -Zosyn as above TYPE 2 DIABETES MELLITUS -Continue usual dose of long-acting insulin -4 times daily glucometers -Low-dose sliding scale Humalog CHRONIC ANTICOAGULATION WITH WARFARIN -Warfarin 2.5 mg p.o. daily, will continue lower dose because of concurrent antibiotic therapy -Daily INR MAINTENANCE ISSUES -DVT prophylaxis; current therapy with warfarin should provide adequate DVT prophylaxis -GI prophylaxis; continue outpatient PPI therapy -Chacon catheter; not indicated -Nutrition; consistent carbohydrate diet -Nicotine dependence; not required CODE STATUS-FULL CODE ADMISSION STATUS-patient will be admitted to inpatient status, expect at least a 2 night hospital stay for evaluation and management of problems as outlined above. At the time of this admission I do not reasonably expected evaluation and management of this problem will require more than a 96 hour hospital stay. DISPOSITION-anticipate discharge to home after the hospital stay. PRIMARY CARE PROVIDER-Mary Lou
[2021-04-28] MEDS: Insulin Glargine,Human Rec. Analog 100 Units/ML 3 ML Pen SUBCUT SCH (21:12)
[2021-04-29] MEDS: Piperacillin/Tazobactam/Dext 3.375 GM in Premix Bag 1 BAG IV SCH ×2 (03:50→10:17)
[2021-04-29] MEDS ORDERED: Bumetanide 2.5 MG/10 ML MDV IVPUSH SCH (08:00)
[2021-04-29] MEDS: Insulin Lispro 100 Unit/ML 3 ML KwikPen SUBCUT SCH ×2 (08:20→13:23)
[2021-04-29] MEDS: Pantoprazole 40 MG Tab.CR PO SCH (08:20)
[2021-04-29] MEDS: Potassium Chloride 20 MEQ Tab.ER PO SCH (08:21)
[2021-04-29] MEDS: Aspirin 81 MG Tab.EC PO SCH (08:23)
[2021-04-29] MEDS: Colchicine 0.6 MG Tab PO SCH (08:23)
[2021-04-29] MEDS: Carvedilol 12.5 MG Tab PO SCH (08:23)
[2021-04-29 11:11] VITALS: BP 110/63; PULSE 76
[2021-04-29] MEDS: Warfarin 2.5 MG Tab PO SCH (13:23)
--- NOTE | 2021-04-29 14:09 | PCM.DCSUM1 ---
Discharge Summary - Hospital Course Brief History: Mr. Mahoney is an 85-year-old gentleman who was admitted through the emergency department with erythema of his left lower leg secondary to cellulitis as well as a urinary tract infection. - Discharge Data Discharge Date: 04/29/21 Discharge Disposition: Home, Self-Care 01 Condition: Stable - Referral to Home Health Primary Care Physician: Mary Lou PA-C - Discharge Diagnosis/Problem(s) (1) UTI (urinary tract infection) SNOMED Code(s): 58833255 ICD Code: N39.0 - URINARY TRACT INFECTION, SITE NOT SPECIFIED Status: Acute Current Visit: Yes (2) Type 2 diabetes mellitus SNOMED Code(s): 39619249 ICD Code: E11.9 - TYPE 2 DIABETES MELLITUS WITHOUT COMPLICATIONS Status: Chronic Current Visit: No (3) Cellulitis of left leg SNOMED Code(s): 326471416 ICD Code: L03.116 - CELLULITIS OF LEFT LOWER LIMB Status: Acute Current Visit: Yes - Patient Summary/Data Hospital Course: Mr. Mahoney is an 85-year-old gentleman who was admitted through the emergency department with increased swelling and erythema of his left leg as well as a urinary tract infection. Over the past few days has experienced increased swelling of the leg with increased erythema and tenderness. Because of the increase in pain he was seen and evaluated in the clinic today, then referred to the emergency department for further evaluation. He is on long-term oral anticoagulation with warfarin. CT scan of the leg was obtained in the emergency department and shows no evidence of osteomyelitis or abscess formation. He was also found to have evidence of urinary tract infection and has received 1 dose of Zosyn. Urine culture was obtained in the emergency department and later grew out Citrobacter which was found to be pansensitive. He was also given diuretic therapy during hospitalization and he had good improvement in his peripheral edema by the time of discharge. There was improvement in the cellulitis and it had almost totally resolved by the time of discharge. Glucose levels were monitored and he was treated with sliding scale Humalog insulin. Activity will be as tolerated and he will remain on a diabetic diet. Follow-up appointment will be scheduled with his primary care provider within 1 week. He will remain on antibiotic therapy for an additional 4 days with Augmentin twice daily. - Patient Instructions Diet: Diabetic Diet Activity: As Tolerated Other/Special Instructions: Please schedule follow-up appointment with primary care provider within 1 week. - Discharge Plan Prescriptions/Med Rec: Amoxicillin/Potassium Clav [Augmentin 875-125 Tablet] 1 each PO BID #8 tablet Home Medications: Home Meds Carvedilol [Coreg] 12.5 mg PO BID 05/29/13 [History] Colchicine [Colcrys] 0.6 mg PO DAILY 05/29/13 [History] Nitroglycerin [Nitrostat] 0.4 mg PO ASDIRECTED PRN 09/05/14 [History] Insulin Glargine,Hum.Rec.Anlog [Basaglar Kwikpen U-100] 5 unit SQ BEDTIME 05/31/17 [History] Warfarin Dosing [Coumadin Ask] 2.5 - 5 mg PO ASDIRECTED 08/28/18 [History] Aspirin [Adult Low Dose Aspirin EC] 81 mg PO DAILY 04/26/19 [History] Ammonium Lactate [Lac-Hydrin 12% Crm] 1 applic TOP BID 07/16/19 [History] Acetaminophen [Tylenol Extra Strength] 500 mg PO Q6H PRN 08/10/20 [History] Omeprazole 20 mg PO DAILY 08/10/20 [History] Potassium Chloride 40 meq PO QAM 08/10/20 [History] Bumetanide [Bumex] 1 mg PO DAILY 02/23/21 [History] Cholecalciferol (Vitamin D3) [Vitamin D3] 2,000 unit PO DAILY 02/23/21 [History] Ergocalciferol (Vitamin D2) [Vitamin D2] 1.25 mg PO .1XWEEK 02/23/21 [History] Iron,Carbonyl/Ascorbic Acid [Vitron-C Tablet] 1 tab PO BID 02/23/21 [History] Pantoprazole Sodium [Protonix] 40 mg PO BID 03/24/21 [History] Potassium Chloride [K-Tab ER] 20 meq PO QPM 03/24/21 [History] Amoxicillin/Potassium Clav [Augmentin 875-125 Tablet] 1 each PO BID #8 tablet 04/29/21 [Rx] Patient Handouts: Fall Prevention in the Home, Adult, [id number], Urinary Tract Infection, Adult, [id number] Referrals: Mary Lou PA-C [Primary Care Provider] - 05/11/21 1:30 pm (Please arrive 15 minutes early to register for your appointment.) - Discharge Summary/Plan Comment DC Time >30 min.: No Total # of Minutes for Discharge Time: 15 - Patient Data Vitals - Most Recent: Last Vital Signs Temp 97.0 F 04/29/21 11:00 Pulse 76 04/29/21 11:00 Resp 16 04/29/21 11:00 BP 110/63 04/29/21 11:00 Pulse Ox 93 L 04/29/21 11:00 Weight - Most Recent: 180 lb 15.992 oz I&O - Last 24 hours: Intake & Output 04/28/21 04/29/21 04/29/21 22:59 06:59 14:59 Intake Total 340 290 Balance 340 290 Lab Results - Last 24 hrs: Laboratory Results - last 24 hr 04/28/21 04/28/21 04/29/21 Range/Units 16:17 20:45 04:33 PT 19.0 H (9.2-10.6) sec INR 1.9 Sodium (140-148) mmol/L Potassium (3.6-5.2) mmol/L Chloride (100-108) mmol/L Carbon Dioxide (21-32) mmol/L Anion Gap (5.0-14.0) mmol/L BUN (7-18) mg/dL Creatinine (0.8-1.3) mg/dL Est Cr Clr Drug Dosing mL/min Estimated GFR (MDRD) (>60) Glucose (74-106) mg/dL POC Glucose 141 H 130 H (74-106) mg/dL Calcium (8.5-10.1) mg/dL 04/29/21 04/29/21 04/29/21 Range/Units 04:33 07:27 11:44 PT (9.2-10.6) sec INR Sodium 141 (140-148) mmol/L Potassium 3.8 (3.6-5.2) mmol/L Chloride 104 (100-108) mmol/L Carbon Dioxide 28 (21-32) mmol/L Anion Gap 8.8 (5.0-14.0) mmol/L BUN 31 H (7-18) mg/dL Creatinine 1.6 H (0.8-1.3) mg/dL Est Cr Clr Drug Dosing 38.15 mL/min Estimated GFR (MDRD) 41 L (>60) Glucose 133 H (74-106) mg/dL POC Glucose 94 129 H (74-106) mg/dL Calcium 8.1 L (8.5-10.1) mg/dL Med Orders - Current: Current Medications Acetaminophen (Acetaminophen 325 Mg Tab) 650 mg PO Q4H PRN PRN Reason: Pain (Mild 1-3)/fever Ammonium Lactate (Ammonium Lactate 12% Lotion 225 Gm Bottle) 0 gm TOP BID [facility] Last Admin: 04/29/21 08:23 Dose: 1 applic Documented by: Aspirin (Aspirin 81 Mg Tab.Ec) 81 mg PO DAILY [facility] Last Admin: 04/29/21 08:23 Dose: 81 mg Documented by: Bumetanide (Bumetanide 2.5 Mg/10 Ml Mdv) 2 mg IVPUSH Q24H [facility] Last Admin: 04/29/21 08:20 Dose: 2 mg Documented by: Carvedilol (Carvedilol 12.5 Mg Tab) 12.5 mg PO BID [facility] Last Admin: 04/29/21 08:23 Dose: 12.5 mg Documented by: Colchicine (Colchicine 0.6 Mg Tab) 0.6 mg PO DAILY [facility] Last Admin: 04/29/21 08:23 Dose: 0.6 mg Documented by: Dextrose (Glucose Gel 15 Gm In 37.5 Gm Tube) 15 gm PO ONETIME PRN PRN Reason: Hypoglycemia Dextrose/Water (50% Dextrose In Water 50 Ml Syringe) 50 ml IV ONETIME PRN PRN Reason: Hypoglycemia Piperacillin/Tazobactam/ (Dextrose 3.375 gm/ Premix) 50 mls @ 100 mls/hr IV Q6H [facility] Last Admin: 04/29/21 10:17 Dose: 100 mls/hr Documented by: Insulin Glargine (Insulin Glargine,Human Rec. Analog 100 Units/Ml 3 Ml Pen) 5 units SUBCUT BEDTIME [facility] Last Admin: 04/28/21 21:12 Dose: 5 unit Documented by: Insulin Human Lispro (Insulin Lispro 100 Unit/Ml 3 Ml Kwikpen) 0 unit SUBCUT QIDACANDBED [facility]; Protocol Last Admin: 04/29/21 13:23 Dose: Not Given Documented by: Ondansetron HCl (Ondansetron 4 Mg/2 Ml Sdv) 4 mg IV Q4H PRN PRN Reason: Nausea/Vomiting Pantoprazole Sodium (Pantoprazole 40 Mg Tab.Cr) 40 mg PO ACBREAKFAST [facility] Last Admin: 04/29/21 08:20 Dose: 40 mg Documented by: Polyethylene Glycol (Polyethylene Glycol 3350 Powder 17 Gm Packet) 17 gm PO DAILY PRN PRN Reason: Constipation Potassium Chloride (Potassium Chloride 20 Meq Tab.Er) 40 meq PO QAM [facility] Last Admin: 04/29/21 08:21 Dose: 40 meq Documented by: Potassium Chloride (Potassium Chloride 20 Meq Tab.Er) 20 meq PO QPM [facility] Last Admin: 04/28/21 16:18 Dose: 20 meq Documented by: Sodium Chloride (Sodium Chloride 0.9% 10 Ml Syringe) 10 ml FLUSH ASDIRECTED PRN PRN Reason: Keep Vein Open Warfarin Sodium (Warfarin 2.5 Mg Tab) 2.5 mg PO DAILY@1300 [facility] Last Admin: 04/29/21 13:23 Dose: 2.5 mg Documented by: Discontinued Medications Bumetanide (Bumetanide 2.5 Mg/10 Ml Mdv) 2 mg IVPUSH Q12H [facility] Last Admin: 04/28/21 08:08 Dose: 2 mg Documented by: Piperacillin/Tazobactam/ (Dextrose 3.375 gm/ Premix) 50 mls @ 100 mls/hr IV ONETIME ONE Stop: 04/26/21 16:14 Last Admin: 04/26/21 16:11 Dose: 100 mls/hr Documented by: Piperacillin Sod/Tazobactam (Sod 3.375 gm/ Sodium Chloride) 50 mls @ 100 mls/hr IV Q6H [facility] Last Admin: 04/27/21 03:44 Dose: 100 mls/hr Documented by: Influenza Virus Vaccine (Flu Vacc [id number](65yr Up)/Pf 240 Mcg/0.7 Ml Syringe) 240 mcg IM .ONCE ONE Stop: 04/27/21 10:01 Last Admin: 04/27/21 10:43 Dose: 240 mcg Documented by: - Exam General: Reports: Alert, Oriented, Cooperative, No Acute Distress Lungs: Reports: Clear to Auscultation, Normal Respiratory Effort Cardiovascular: Reports: Regular Rate, Regular Rhythm, No Murmurs GI/Abdominal Exam: Soft, Non-Tender, No Organomegaly, No Distention Extremities: Non-Tender, Pedal Edema *Q Meaningful Use (DIS) - VTE *Q VTE Pharmacological Contraindications *Q: High INR Value
== END 2021-04-29 15:00 | disposition home or self-care (01) | DRG 603 ==
LOC: JP.ED 11:49 → JP.MS 19:28
PROVIDERS: ADMIT Hospitalist; ATTEND Hospitalist
DX: L03.116 Cellulitis of left lower limb (principal); N39.0 Urinary tract infection, site not specified; H54.7 Unspecified visual loss; E78.5 Hyperlipidemia, unspecified; I48.91 Unspecified atrial fibrillation; I25.10 Atherosclerotic heart disease of native coronary artery without angina pectoris; E78.00 Pure hypercholesterolemia, unspecified; I25.2 Old myocardial infarction; I49.3 Ventricular premature depolarization; D64.9 Anemia, unspecified; Z96.643 Presence of artificial hip joint, bilateral; Z96.612 Presence of left artificial shoulder joint; Z96.611 Presence of right artificial shoulder joint; E11.9 Type 2 diabetes mellitus without complications; I73.9 Peripheral vascular disease, unspecified; G47.33 Obstructive sleep apnea (adult) (pediatric); Z87.19 Personal history of other diseases of the digestive system; I10 Essential (primary) hypertension; Z97.3 Presence of spectacles and contact lenses; Z95.5 Presence of coronary angioplasty implant and graft; G47.30 Sleep apnea, unspecified; N40.0 Benign prostatic hyperplasia without lower urinary tract symptoms; Z87.81 Personal history of (healed) traumatic fracture; Z98.42 Cataract extraction status, left eye; Z98.41 Cataract extraction status, right eye; M19.90 Unspecified osteoarthritis, unspecified site; Z90.49 Acquired absence of other specified parts of digestive tract; Z98.890 Other specified postprocedural states; Z90.89 Acquired absence of other organs; Z86.718 Personal history of other venous thrombosis and embolism; Z92.3 Personal history of irradiation; Z86.73 Personal history of transient ischemic attack (TIA), and cerebral infarction without residual deficits; E11.42 Type 2 diabetes mellitus with diabetic polyneuropathy; F32.A Depression, unspecified; F41.9 Anxiety disorder, unspecified; Z85.46 Personal history of malignant neoplasm of prostate; Z88.2 Allergy status to sulfonamides; Z88.7 Allergy status to serum and vaccine; Z88.8 Allergy status to other drugs, medicaments and biological substances; Z88.1 Allergy status to other antibiotic agents; Z91.041 Radiographic dye allergy status; Z79.01 Long term (current) use of anticoagulants; Z79.82 Long term (current) use of aspirin; Z79.4 Long term (current) use of insulin; Z79.899 Other long term (current) drug therapy; Z20.822 Contact with and (suspected) exposure to COVID-19
CPT/HCPCS: 0241U; 36415; 73700; 80048; 80053; 81001; 82947; 83735; 85025; 85610; 86140; 87086; 87088; 87186; 90662; 93971; A9270-GY; G0008; J1815; J1815-GY; J2543; J3490

== ENCOUNTER 2021-06-20 12:22 | Emergency (ER) | payer OTHER, MEDICARE, BC, MEDICAID ==
[2021-06-20 12:27] VITALS: BP 140/77; PULSE 77
[2021-06-20] MEDS ORDERED: Lidocaine 2% Jelly 10 ML Urojet MUCMEM ONE (12:57)
== END 2021-06-20 14:45 ==
LOC: JP.ED 12:22
DX: S62.337A Displaced fracture of neck of fifth metacarpal bone, left hand, initial encounter for closed fracture (principal); S51.012A Laceration without foreign body of left elbow, initial encounter; I48.91 Unspecified atrial fibrillation; I25.10 Atherosclerotic heart disease of native coronary artery without angina pectoris; E78.00 Pure hypercholesterolemia, unspecified; I10 Essential (primary) hypertension; I25.2 Old myocardial infarction; E11.9 Type 2 diabetes mellitus without complications; M10.9 Gout, unspecified; M19.90 Unspecified osteoarthritis, unspecified site; N40.0 Benign prostatic hyperplasia without lower urinary tract symptoms; E66.9 Obesity, unspecified; Z95.5 Presence of coronary angioplasty implant and graft; Z88.1 Allergy status to other antibiotic agents; Z88.5 Allergy status to narcotic agent; Z88.8 Allergy status to other drugs, medicaments and biological substances; Z91.041 Radiographic dye allergy status; Z88.7 Allergy status to serum and vaccine; Z79.82 Long term (current) use of aspirin; Z79.01 Long term (current) use of anticoagulants; Z79.899 Other long term (current) drug therapy; Z68.26 Body mass index [BMI] 26.0-26.9, adult; W05.0XXA Fall from non-moving wheelchair, initial encounter
CPT/HCPCS: 12002; 73080-26-LT; 73080-LT; 73130-26-LT; 73130-LT; 99283; 99283-25

== ENCOUNTER 2022-06-07 02:38 | Emergency (ER) | payer MEDICARE, BC, MEDICAID ==
[2022-06-07 03:12] LABS: ESTIMATED GFR 49 mL/min (>60)
[2022-06-07] MEDS ORDERED: hydrALAZINE 20 MG/ML SDV IVPUSH ONE (03:22)
[2022-06-07] MEDS ORDERED: Sodium Chloride 0.9% 10 ML Syringe FLUSH PRN (03:22)
[2022-06-07] MEDS ORDERED: fentaNYL 50 MCG/ML SDV IVPUSH ONE (03:23)
[2022-06-07] MEDS ORDERED: Lidocaine 1% 5 ML VIAL INJECT ONE (03:33)
[2022-06-07] MEDS ORDERED: Lidocaine 1% 50 ML MDV INJECT STA (04:01)
[2022-06-07] MEDS ORDERED: Lidocaine 1% 50 ML MDV ONE (04:02)
[2022-06-07] MEDS: fentaNYL 50 MCG/ML SDV IVPUSH PRN ×2 (07:26→09:16)
[2022-06-07 10:09] VITALS: BP 107/61; PULSE 71
== END 2022-06-07 10:15 ==
LOC: JP.ED 02:38
DX: H95.41 Postprocedural hemorrhage of ear and mastoid process following a procedure on the ear and mastoid process (principal); I48.91 Unspecified atrial fibrillation; I25.10 Atherosclerotic heart disease of native coronary artery without angina pectoris; I10 Essential (primary) hypertension; M10.9 Gout, unspecified; E11.42 Type 2 diabetes mellitus with diabetic polyneuropathy; E66.9 Obesity, unspecified; Z68.1 Body mass index [BMI] 19.9 or less, adult; Z88.1 Allergy status to other antibiotic agents; Z88.8 Allergy status to other drugs, medicaments and biological substances; Z91.041 Radiographic dye allergy status; Z88.2 Allergy status to sulfonamides; Z88.5 Allergy status to narcotic agent; Z88.7 Allergy status to serum and vaccine; Z79.4 Long term (current) use of insulin; Z79.899 Other long term (current) drug therapy
CPT/HCPCS: 12011; 36415; 80053; 85018; 85025; 85610; 85730; 86850; 86900; 86901; 96374; 96375; 96376; 99284; J0360; J2001; J3010; J3490; 12001; 99283

== ENCOUNTER 2022-06-08 10:19 | Emergency (ER) | payer MEDICARE, BC, MEDICAID ==
[2022-06-08 10:36] VITALS: BP 102/40; PULSE 90
[2022-06-08] MEDS ORDERED: Phytonadione 5 MG in Sodium Chloride 0.9% 50 ML IV ONE (12:16)
[2022-06-08] MEDS ORDERED: Sodium Chloride 0.9% 10 ML Syringe FLUSH PRN (12:16)
== END 2022-06-08 13:47 ==
LOC: JP.ED 10:19
DX: H92.21 Otorrhagia, right ear (principal); T45.515A Adverse effect of anticoagulants, initial encounter; I48.91 Unspecified atrial fibrillation; I25.10 Atherosclerotic heart disease of native coronary artery without angina pectoris; E78.00 Pure hypercholesterolemia, unspecified; I10 Essential (primary) hypertension; I25.2 Old myocardial infarction; M10.9 Gout, unspecified; E11.42 Type 2 diabetes mellitus with diabetic polyneuropathy; M19.90 Unspecified osteoarthritis, unspecified site; Z88.1 Allergy status to other antibiotic agents; Z91.041 Radiographic dye allergy status; Z88.2 Allergy status to sulfonamides; Z88.8 Allergy status to other drugs, medicaments and biological substances; Z88.7 Allergy status to serum and vaccine; Z88.5 Allergy status to narcotic agent; Z79.4 Long term (current) use of insulin; Z79.01 Long term (current) use of anticoagulants; Z86.73 Personal history of transient ischemic attack (TIA), and cerebral infarction without residual deficits; Z79.899 Other long term (current) drug therapy
CPT/HCPCS: 36415; 85018; 85610; 96365; 99283; J3430; J3490